=== PATIENT | male | born 1965 | race Two or more races ===

== ENCOUNTER 2017-06-23 19:38 | Inpatient (IN) | payer MEDICAID ==
[~2017-06-23] VITALS: Ht 172.7 cm; Wt 98.2 kg
[~2017-06-23 19:38] MED LIST: AMLO5CAP PO; ASPI81CH43 PO; METF-372 PO; OMEP20CA74 PO; RANI1TAB4 PO; SITA100T7 PO
[2017-06-23] MEDS ORDERED: ONDANSETRON HCL 4 MG/2 ML VIAL IV ONE (21:15)
[2017-06-23] MEDS ORDERED: MORPHINE SULFATE 10 MG/ML INJ 1ML SDV IV ONE (21:15)
[2017-06-23] MEDS ORDERED: ALBUTEROL SULF 2.5 MG/0.5ML(0.5%) NEB SOLN HHN ONE (21:15)
[2017-06-23] MEDS ORDERED: IPRATROPIUM BROM 0.5 MG/2.5ML INH SOL HHN ONE (21:15)
[2017-06-23 21:17] LABS: Basophils # (auto) 0.1 uL; Eosinophils # (auto) 0.3 uL; Eosinophils % (auto) 3.8 % (0.0-7.0); Hematocrit 38.5 % (41.0-53.0); Hemoglobin 12.3 g/dL (13.5-17.5); Lymphocytes # (auto) 1.7 uL; Lymphocytes % (auto) 21.3 % (10.0-50.0); Mean Corpuscular Hemoglobin 27.8 pg (28.0-32.0); Mean Corpuscular Hgb Conc. 31.8 g/dL (32.0-36.0); Mean Corpuscular Volume 87.6 fL (80.0-100.0); Mean Platelet Volume 7.4 fL (6.9-10.8); Monocytes # (auto) 0.9 uL; Monocytes % (auto) 10.9 % (0.0-12.0); Neutrophils # (auto) 5.1 uL; Platelet Count (auto) 158 10^3/uL (140-450); Red Cell Distribution Width 15.9 % (11.8-14.3); White Blood Cell 8.1 10^3/uL (4.4-10.8)
[2017-06-23 21:36] LABS: Urine Bilirubin Negative (Negative); Urine Blood 1+ /uL (Negative); Urine Color Yellow (Yellow); Urine Glucose Normal (Normal); Urine Ketone Negative (Negative); Urine Mucus FEW (None Seen); Urine Nitrite Negative (Negative); Urine RBC 2 /hpf (0 - 3)
[2017-06-23 21:36] LABS: Albumin 2.8 g/dL (3.4-5.0); BUN/Creatinine Ratio 20.2; Calcium 8.2 mg/dL (8.5-10.1)
[2017-06-23 21:40] LABS: Bilirubin, Total 0.4 mg/dL (0.2-1.0); Total Protein 6.9 g/dL (6.4-8.2)
[2017-06-23 21:45] LABS: INR 1.05 (0.9-1.15); Partial Thromboplastin Time 25.8 sec (22.64-33.71); Prothrombin Time 11.4 sec (9.37-12.3)
[2017-06-23 21:53] LABS: B-Type Natriuretic Peptide 811.23 pg/mL (0-100)
[2017-06-23 21:56] LABS: Temperature: 22.9 C (20.0-25.0)
[2017-06-23] MEDS ORDERED: MORPHINE SULFATE 10 MG/ML INJ 1ML SDV IV PRN (22:45)
[2017-06-23] MEDS ORDERED: TEMAZEPAM 15 MG CAP PO PRN (22:45)
[2017-06-23] MEDS ORDERED: FUROSEMIDE 20 MG/2 ML VIAL IV ONE (22:45)
[2017-06-23] MEDS ORDERED: NITROGLYCERIN 0.4 MG SL TAB SL PRN (22:45)
[2017-06-23] MEDS ORDERED: ACETAMINOPHEN 325 MG TAB PO PRN (22:45)
[2017-06-23] MEDS ORDERED: DEXTROSE (50%) 50ML SYRG IV PRN (22:45)
[2017-06-23] MEDS: InsuLIN REG 1unit/0.01ml Soln (100units/ml) SC SCH (23:26)
[2017-06-23] MEDS: ACCU-CHEK COMFORT CURVE STRIP VI SCH (23:26)
[2017-06-23] MEDS ORDERED: TRAM50TA2 PO (23:47)
[2017-06-23] MEDS ORDERED: GABA-339 PO (23:47)
[2017-06-23] MEDS ORDERED: ACLI1AER2 IN (23:47)
[2017-06-23] MEDS ORDERED: POTA10TA34 PO (23:47)
[2017-06-23] MEDS ORDERED: SILD50TA42 PO (23:47)
[2017-06-23] MEDS ORDERED: FLUO-125 PO (23:47)
[2017-06-23] MEDS ORDERED: NORT25CA PO (23:47)
[2017-06-23] MEDS ORDERED: CARV6.2551 PO (23:47)
[2017-06-24] MEDS ORDERED: METOPROLOL TARTRATE 1MG/1ML-5ML VIAL IV ONE ×2 (04:45→04:51)
[2017-06-24 04:54] LABS: Basophils # (auto) 0.1 uL; Basophils % (auto) 0.8 % (0.0-2.0); Eosinophils # (auto) 0.4 uL; Hematocrit 43.1 % (41.0-53.0); Hemoglobin 13.9 g/dL (13.5-17.5); Lymphocytes # (auto) 2.8 uL; Lymphocytes % (auto) 25.8 % (10.0-50.0); Mean Corpuscular Hemoglobin 28.6 pg (28.0-32.0); Mean Corpuscular Hgb Conc. 32.3 g/dL (32.0-36.0); Mean Corpuscular Volume 88.7 fL (80.0-100.0); Mean Platelet Volume 8.2 fL (6.9-10.8); Monocytes # (auto) 1.1 uL; Monocytes % (auto) 9.7 % (0.0-12.0); Neutrophils # (auto) 6.5 uL; Neutrophils % (auto) 59.7 % (37.0-80.0); Platelet Count (auto) 191 10^3/uL (140-450); Red Cell Distribution Width 16.5 % (11.8-14.3)
[2017-06-24 05:18] LABS: Albumin 3.3 g/dL (3.4-5.0); BUN/Creatinine Ratio 16.1; Bilirubin, Total 0.6 mg/dL (0.2-1.0); Calcium 8.6 mg/dL (8.5-10.1); Total Protein 8.7 g/dL (6.4-8.2)
[2017-06-24] MEDS: InsuLIN REG 1unit/0.01ml Soln (100units/ml) SC SCH ×4 (06:00→23:30)
[2017-06-24] MEDS: ACCU-CHEK COMFORT CURVE STRIP VI SCH ×4 (06:04→23:27)
[2017-06-24 06:15] LABS: Potassium 5.7 mmol/L (3.5-5.1)
[2017-06-24 06:45] VITALS: BP 135/91
[2017-06-24] MEDS ORDERED: DEXTROSE (50%) 50ML SYRG IV ONE (07:00)
[2017-06-24] MEDS ORDERED: InsuLIN REG 1unit/0.01ml Soln (100units/ml) IV ONE (07:00)
[2017-06-24] MEDS ORDERED: SODIUM BICARBONATE 8.4 % INJ 50ML VIAL IV ONE (07:00)
[2017-06-24] MEDS ORDERED: ENOXAPARIN SOD 100 MG/1 ML SYRINGE SC ONE (07:00)
[2017-06-24] MEDS ORDERED: CALCIUM GLUC 4.65meq/50ml D5AE 50 ML IV ONE (07:00)
[2017-06-24] MEDS: IPRATROPIUM BROM 0.5 MG/2.5ML INH SOL NEB PRN (07:05)
[2017-06-24] MEDS: ALBUTEROL SULF 2.5 MG/0.5ML(0.5%) NEB SOLN NEB PRN (07:05)
[2017-06-24 07:40] LABS: Allen Test Yes; Base Excess -2.4 mmol/L (-2.0-2.0); Blood MetHb 0.2 % (0.0-1.5); HCO3 29.4 mmol/L (22-26.0); HHb 10.9 % (0.0-5.0); MODE NASAL CANNULA; O2Hb 87.9 % (94.0-97.0); PCO2 90.2 mmHg (35.0-45.0); PCO2(T) 90.2 mmHg (35.0-45.0); PO2 70.9 mmHg (80.0-100.0); PO2(T) 70.9 mmHg (80.0-100.0); Room 1020-ERT; Sample Type Arterial; pH 7.131 (7.350-7.450)
[2017-06-24] MEDS: CARVEDILOL 3.125 MG TAB PO SCH ×2 (08:23→21:50)
[2017-06-24] MEDS: amLODIPine BESYLATE 5 MG TAB PO SCH (08:24)
[2017-06-24] MEDS: FUROSEMIDE 40 MG TAB PO SCH (08:24)
[2017-06-24] MEDS: FAMOTIDINE 20 MG TAB PO SCH ×4 (08:24→21:49)
[2017-06-24] MEDS: ENOXAPARIN SOD 40 MG/0.4 ML SYRINGE SC SCH (08:25)
[2017-06-24 08:46] LABS: Allen Test Yes; Base Excess -0.7 mmol/L (-2.0-2.0); Blood 02Sat 92.4 % (96-100); Blood COHb 0.8 % (0.5-1.5); Blood MetHb 0.2 % (0.0-1.5); HCO3 28.1 mmol/L (22-26.0); HHb 7.5 % (0.0-5.0); MODE MASK - BIPAP; O2Hb 91.5 % (94.0-97.0); PCO2 65.8 mmHg (35.0-45.0); PCO2(T) 65.8 mmHg (35.0-45.0); PIP 16; Room 1020-ERT; Sample Type Arterial; pH 7.248 (7.350-7.450)
[2017-06-24 09:02] VITALS: BP 135/91
[2017-06-24] MEDS ORDERED: IODIXANOL 320MG/ML 100ML BTL IV ONE (09:40)
[2017-06-24] MEDS ORDERED: RANITIDINE 75 MG PO SCH (10:00)
[2017-06-24 15:07] LABS: Body Fluid Polymorphonuclear 7 %
[2017-06-24] MEDS: HYDROcodone-ACET 5/325MG TAB PO PRN (15:47)
[2017-06-24 19:45] VITALS: BP 133/84
[2017-06-24 21:59] VITALS: BP 154/73
[2017-06-24 23:50] VITALS: BP 144/100
[2017-06-25 02:00] VITALS: BP 143/89
[2017-06-25 04:00] VITALS: BP 132/86
[2017-06-25] MEDS: IPRATROPIUM BROM 0.5 MG/2.5ML INH SOL NEB PRN (06:10)
[2017-06-25] MEDS: ALBUTEROL SULF 2.5 MG/0.5ML(0.5%) NEB SOLN NEB PRN (06:10)
[2017-06-25] MEDS: ACCU-CHEK COMFORT CURVE STRIP VI SCH ×4 (06:12→23:56)
[2017-06-25 06:13] LABS: Basophils # (auto) 0.1 uL; Basophils % (auto) 1.2 % (0.0-2.0); Eosinophils # (auto) 0.2 uL; Eosinophils % (auto) 2.3 % (0.0-7.0); Hematocrit 37.1 % (41.0-53.0); Hemoglobin 11.8 g/dL (13.5-17.5); Lymphocytes # (auto) 1.4 uL; Lymphocytes % (auto) 15.7 % (10.0-50.0); Mean Corpuscular Hemoglobin 28.2 pg (28.0-32.0); Mean Corpuscular Hgb Conc. 31.9 g/dL (32.0-36.0); Mean Corpuscular Volume 88.5 fL (80.0-100.0); Mean Platelet Volume 7.8 fL (6.9-10.8); Monocytes # (auto) 0.9 uL; Monocytes % (auto) 10.1 % (0.0-12.0); Neutrophils # (auto) 6.3 uL; Neutrophils % (auto) 70.7 % (37.0-80.0); Platelet Count (auto) 148 10^3/uL (140-450)
[2017-06-25] MEDS: InsuLIN REG 1unit/0.01ml Soln (100units/ml) SC SCH ×4 (06:13→23:55)
[2017-06-25 06:43] LABS: Albumin 2.6 g/dL (3.4-5.0); Bilirubin, Total 0.5 mg/dL (0.2-1.0); Calcium 8.2 mg/dL (8.5-10.1); Potassium 4.2 mmol/L (3.5-5.1); Total Protein 6.5 g/dL (6.4-8.2)
[2017-06-25 08:06] LABS: Thyroxine (T4) 10.4 ug/dL (4.5-12.0)
[2017-06-25] MEDS: FAMOTIDINE 20 MG TAB PO SCH ×4 (10:00→21:43)
[2017-06-25] MEDS: CARVEDILOL 3.125 MG TAB PO SCH ×2 (10:19→21:42)
[2017-06-25] MEDS: FUROSEMIDE 40 MG TAB PO SCH (10:21)
[2017-06-25] MEDS: amLODIPine BESYLATE 5 MG TAB PO SCH (10:21)
[2017-06-25] MEDS: ENOXAPARIN SOD 40 MG/0.4 ML SYRINGE SC SCH (10:22)
[2017-06-25] MEDS: HYDROcodone-ACET 5/325MG TAB PO PRN ×2 (12:41→21:17)
[2017-06-25 16:15] LABS: Allen Test Yes; Base Excess 1.8 mmol/L (-2.0-2.0); Blood 02Sat 87.1 % (96-100); Blood COHb 1.2 % (0.5-1.5); Blood MetHb 0.2 % (0.0-1.5); HCO3 28.2 mmol/L (22-26.0); HHb 12.7 % (0.0-5.0); MODE RA; O2Hb 85.9 % (94.0-97.0); PCO2 51.4 mmHg (35.0-45.0); PCO2(T) 51.4 mmHg (35.0-45.0); Room 1020-ERT; Sample Type Arterial; pH 7.357 (7.350-7.450)
[2017-06-25 22:25] VITALS: BP 149/90
[2017-06-26] MEDS ORDERED: VANCOMYCIN PER PHARMACY 0 MG IV SCH (05:15)
[2017-06-26] MEDS: PIPERACILLIN-TAZOB 3.375GM 100 ML IV SCH ×3 (05:23→18:10)
[2017-06-26] MEDS: InsuLIN REG 1unit/0.01ml Soln (100units/ml) SC SCH ×3 (06:00→18:06)
[2017-06-26] MEDS ORDERED: VANCOMYCIN 1GM/250ML 250 ML IV ONE (06:00)
[2017-06-26] MEDS: ACCU-CHEK COMFORT CURVE STRIP VI SCH ×3 (06:07→18:05)
[2017-06-26] MEDS: KETOROLAC TROMETH 30 MG/ML 1ML VIAL IV PRN ×2 (06:42→18:10)
[2017-06-26] MEDS: CARVEDILOL 3.125 MG TAB PO SCH ×2 (09:37→22:05)
[2017-06-26] MEDS: FAMOTIDINE 20 MG TAB PO SCH ×2 (09:37→22:05)
[2017-06-26] MEDS: ENOXAPARIN SOD 40 MG/0.4 ML SYRINGE SC SCH (09:37)
[2017-06-26] MEDS: amLODIPine BESYLATE 5 MG TAB PO SCH (09:37)
[2017-06-26] MEDS: FUROSEMIDE 40 MG TAB PO SCH (09:37)
[2017-06-26] MEDS: ONDANSETRON HCL 4 MG/2 ML VIAL IV PRN (13:29)
[2017-06-26] MEDS: VANCOMYCIN 1GM/250ML 250 ML IV SCH (18:10)
[2017-06-26] MEDS: HYDROcodone-ACET 5/325MG TAB PO PRN (20:16)
[2017-06-27] MEDS: ACCU-CHEK COMFORT CURVE STRIP VI SCH ×4 (00:14→18:06)
[2017-06-27] MEDS: PIPERACILLIN-TAZOB 3.375GM 100 ML IV SCH ×4 (00:15→18:06)
[2017-06-27] MEDS: VANCOMYCIN 1GM/250ML 250 ML IV SCH ×2 (06:00→18:06)
[2017-06-27] MEDS: InsuLIN REG 1unit/0.01ml Soln (100units/ml) SC SCH ×4 (06:00→18:27)
[2017-06-27 06:12] VITALS: BP 146/87
[2017-06-27] MEDS: FAMOTIDINE 20 MG TAB PO SCH ×2 (10:07→21:15)
[2017-06-27] MEDS: FUROSEMIDE 40 MG TAB PO SCH (10:07)
[2017-06-27] MEDS: CARVEDILOL 3.125 MG TAB PO SCH ×2 (10:07→21:15)
[2017-06-27] MEDS: ONDANSETRON HCL 4 MG/2 ML VIAL IV PRN ×2 (10:08→18:08)
[2017-06-27] MEDS: KETOROLAC TROMETH 30 MG/ML 1ML VIAL IV PRN ×2 (10:08→18:08)
[2017-06-27] MEDS: amLODIPine BESYLATE 5 MG TAB PO SCH (10:08)
[2017-06-27] MEDS: ENOXAPARIN SOD 40 MG/0.4 ML SYRINGE SC SCH (10:08)
[2017-06-27] MEDS: RAMIPRIL 10 MG CAP PO SCH (13:48)
[2017-06-27] MEDS: HYDROcodone-ACET 5/325MG TAB PO PRN (20:11)
[2017-06-27] MEDS ORDERED: ALPRAZolam 0.25 MG TAB PO PRN (22:30)
[2017-06-27 23:30] VITALS: BP 142/106
[2017-06-27 23:45] VITALS: BP 142/106
[2017-06-28] MEDS: PIPERACILLIN-TAZOB 3.375GM 100 ML IV SCH ×5 (00:38→23:55)
[2017-06-28] MEDS ORDERED: INFLUENZA QUAD 2017-2018 0.5 ML SYRG IM ONE (03:30)
[2017-06-28 05:00] VITALS: BP 139/102
[2017-06-28] MEDS: VANCOMYCIN 1GM/250ML 250 ML IV SCH ×2 (05:36→18:45)
[2017-06-28] MEDS: InsuLIN REG 1unit/0.01ml Soln (100units/ml) SC SCH ×4 (06:00→18:00)
[2017-06-28 06:16] LABS: Basophils # (auto) 0 uL; Basophils % (auto) 0.4 % (0.0-2.0); Eosinophils # (auto) 0.5 uL; Eosinophils % (auto) 6.3 % (0.0-7.0); Hematocrit 39.1 % (41.0-53.0); Hemoglobin 12.7 g/dL (13.5-17.5); Lymphocytes # (auto) 1.3 uL; Lymphocytes % (auto) 16.3 % (10.0-50.0); Mean Corpuscular Hemoglobin 28.5 pg (28.0-32.0); Mean Corpuscular Hgb Conc. 32.4 g/dL (32.0-36.0); Mean Corpuscular Volume 87.9 fL (80.0-100.0); Mean Platelet Volume 7.5 fL (6.9-10.8); Monocytes # (auto) 0.9 uL; Monocytes % (auto) 10.8 % (0.0-12.0); Neutrophils # (auto) 5.4 uL; Neutrophils % (auto) 66.2 % (37.0-80.0); Platelet Count (auto) 158 10^3/uL (140-450); Red Cell Distribution Width 15.6 % (11.8-14.3); White Blood Cell 8.2 10^3/uL (4.4-10.8)
[2017-06-28] MEDS: ACCU-CHEK COMFORT CURVE STRIP VI SCH ×4 (06:27→17:10)
[2017-06-28 06:38] LABS: Albumin 2.8 g/dL (3.4-5.0); Bilirubin, Total 0.8 mg/dL (0.2-1.0); Calcium 8.4 mg/dL (8.5-10.1); Potassium 4.1 mmol/L (3.5-5.1); Total Protein 7.1 g/dL (6.4-8.2)
[2017-06-28 08:41] VITALS: BP 118/79
[2017-06-28] MEDS ORDERED: ADCIRCA 20 MG PO SCH ×2 (10:00)
[2017-06-28] MEDS: ENOXAPARIN SOD 40 MG/0.4 ML SYRINGE SC SCH (11:09)
[2017-06-28] MEDS: CARVEDILOL 3.125 MG TAB PO SCH ×2 (11:10→22:36)
[2017-06-28] MEDS: FAMOTIDINE 20 MG TAB PO SCH ×2 (11:10→22:35)
[2017-06-28] MEDS: RAMIPRIL 10 MG CAP PO SCH (11:10)
[2017-06-28] MEDS: FUROSEMIDE 40 MG TAB PO SCH (11:11)
[2017-06-28] MEDS: amLODIPine BESYLATE 5 MG TAB PO SCH (11:11)
[2017-06-28 12:00] VITALS: BP 147/96
[2017-06-28 17:00] VITALS: BP 157/97
[2017-06-28] MEDS ORDERED: cloNIDine HCL 0.1 MG TAB PO PRN (17:30)
[2017-06-28 22:00] VITALS: BP 153/97
[2017-06-29 04:49] VITALS: BP 141/98
[2017-06-29] MEDS: VANCOMYCIN 1GM/250ML 250 ML IV SCH (05:43)
[2017-06-29] MEDS: InsuLIN REG 1unit/0.01ml Soln (100units/ml) SC SCH ×2 (06:00)
[2017-06-29] MEDS: ACCU-CHEK COMFORT CURVE STRIP VI SCH ×2 (06:00)
[2017-06-29] MEDS: PIPERACILLIN-TAZOB 3.375GM 100 ML IV SCH (06:30)
[2017-06-29 09:00] VITALS: BP 147/91
[2017-06-29] MEDS: ENOXAPARIN SOD 40 MG/0.4 ML SYRINGE SC SCH (10:04)
[2017-06-29] MEDS: amLODIPine BESYLATE 5 MG TAB PO SCH (10:04)
[2017-06-29] MEDS: FAMOTIDINE 20 MG TAB PO SCH (10:05)
[2017-06-29] MEDS: FUROSEMIDE 40 MG TAB PO SCH (10:05)
[2017-06-29] MEDS: RAMIPRIL 10 MG CAP PO SCH (10:06)
[2017-06-29] MEDS: CARVEDILOL 3.125 MG TAB PO SCH (10:06)
[2017-06-29] MEDS: HYDROcodone-ACET 5/325MG TAB PO PRN (10:15)
[2017-06-29 12:25] VITALS: BP 139/70
[2017-06-29 14:15] VITALS: BP 141/98
== END 2017-06-29 15:45 | disposition home or self-care (01) | DRG 133 ==
LOC: ER 19:38 → TELE 19:39 → TELE-EAST 06-27 23:20 → EAST 06-27 23:21 → TELE-EAST 06-27 23:37
PROVIDERS: ADMIT Nurse Practitioner; ATTEND Internal Medicine
PROC: 5A09357 Assistance with Respiratory Ventilation, Less than 24 Consecutive Hours, Continuous Positive Airway Pressure (ICD-10-PCS; principal; 2017-06-24)
PROC: 0W9930Z Drainage of Right Pleural Cavity with Drainage Device, Percutaneous Approach (ICD-10-PCS; 2017-06-24)
DX: J96.00 Acute respiratory failure, unspecified whether with hypoxia or hypercapnia (principal); I50.43 Acute on chronic combined systolic (congestive) and diastolic (congestive) heart failure; E11.8 Type 2 diabetes mellitus with unspecified complications; I27.20 Pulmonary hypertension, unspecified; I25.10 Atherosclerotic heart disease of native coronary artery without angina pectoris; K21.9 Gastro-esophageal reflux disease without esophagitis; I11.0 Hypertensive heart disease with heart failure; E78.5 Hyperlipidemia, unspecified; I25.2 Old myocardial infarction; Z86.73 Personal history of transient ischemic attack (TIA), and cerebral infarction without residual deficits; Z80.1 Family history of malignant neoplasm of trachea, bronchus and lung; Z83.3 Family history of diabetes mellitus; Z82.49 Family history of ischemic heart disease and other diseases of the circulatory system; Z95.1 Presence of aortocoronary bypass graft
CPT/HCPCS: 36415; 36600; 71010; 71020; 71275; 76604; 76942; 80053; 80202; 81001; 82805; 82962; 83605; 83735; 83880; 83986; 84132; 84443; 84484; 85025; 85379; 85610; 85730; 87040; 87070; 87077; 87186; 87205; 89051; 93005; 93306; 93970; 94640; 94660; 94761; 96374; 96375; J1815; J1885; J2405; J2543; Q9967

== ENCOUNTER 2017-07-07 09:32 | Inpatient (IN) | payer MEDICAID ==
[~2017-07-07] VITALS: Ht 170.2 cm; Wt 90.7 kg
[~2017-07-07 09:32] MED LIST changes: +ACLI1AER2 IN; +CARV6.2551 PO; +FLUO-125 PO; +GABA-339 PO; +NORT25CA PO; +POTA10TA34 PO; +SILD50TA42 PO; +TRAM50TA2 PO
[2017-07-07 10:12] LABS: Basophils # (auto) 0.1 uL; Basophils % (auto) 1.4 % (0.0-2.0); Eosinophils # (auto) 0.4 uL; Eosinophils % (auto) 5.4 % (0.0-7.0); Hematocrit 39.7 % (41.0-53.0); Hemoglobin 12.9 g/dL (13.5-17.5); Lymphocytes # (auto) 1.4 uL; Mean Corpuscular Hemoglobin 28.4 pg (28.0-32.0); Mean Corpuscular Hgb Conc. 32.4 g/dL (32.0-36.0); Mean Corpuscular Volume 87.6 fL (80.0-100.0); Monocytes # (auto) 0.7 uL; Monocytes % (auto) 8.4 % (0.0-12.0); Neutrophils # (auto) 5.6 uL; Neutrophils % (auto) 67.8 % (37.0-80.0); Nucleated Red Blood Cells % 0.1 %; Platelet Count (auto) 179 10^3/uL (140-450); Red Blood Cells 4.53 10^6/uL (4.5-5.90); Red Cell Distribution Width 16.3 % (11.8-14.3); White Blood Cell 8.2 10^3/uL (4.4-10.8)
[2017-07-07 10:32] LABS: Albumin 2.9 g/dL (3.4-5.0); BUN/Creatinine Ratio 35.1; Calcium 8.8 mg/dL (8.5-10.1); Magnesium 1.9 mg/dL (1.6-2.6); Potassium 4.1 mmol/L (3.5-5.1)
[2017-07-07 10:37] LABS: Bilirubin, Total 0.4 mg/dL (0.2-1.0); Total Protein 7.5 g/dL (6.4-8.2)
[2017-07-07] MEDS ORDERED: FURO40TA PO (10:59)
[2017-07-07] MEDS ORDERED: NITROGLYCERIN 0.4 MG SL TAB SL PRN (13:30)
[2017-07-07] MEDS ORDERED: MORPHINE SULFATE 10 MG/ML INJ 1ML SDV IV PRN ×2 (13:30)
[2017-07-07] MEDS ORDERED: TEMAZEPAM 15 MG CAP PO PRN (13:30)
[2017-07-07] MEDS ORDERED: traMADol HCL 50 MG TAB PO PRN (13:30)
[2017-07-07] MEDS ORDERED: ACETAMINOPHEN 325 MG TAB PO PRN (13:30)
[2017-07-07] MEDS ORDERED: FUROSEMIDE 40 MG/4 ML VIAL IV ONE (13:30)
[2017-07-07] MEDS ORDERED: DOCUSATE SOD 100 MG CAP PO PRN (13:30)
[2017-07-07] MEDS ORDERED: ONDANSETRON HCL 4 MG/2 ML VIAL IV PRN (13:30)
[2017-07-07] MEDS ORDERED: CARVEDILOL 3.125 MG TAB PO ONE (13:30)
[2017-07-07] MEDS ORDERED: HYDROcodone-ACET 5/325MG TAB PO PRN (13:30)
[2017-07-07] MEDS ORDERED: DEXTROSE (50%) 50ML SYRG IV PRN (13:45)
[2017-07-07 13:50] LABS: INR 0.99 (0.9-1.15); Partial Thromboplastin Time 26.6 sec (22.64-33.71); Prothrombin Time 10.8 sec (9.37-12.3)
[2017-07-07] MEDS: SILDENAFIL CITRATE 20 MG TAB PO SCH ×2 (14:00→21:07)
[2017-07-07] MEDS: SODIUM CHLOR 0.9% PF (SALINE LOCK) 10ML VIAL IV SCH ×2 (14:00→22:23)
[2017-07-07] MEDS: GABAPENTIN 300 MG CAP PO SCH ×2 (14:00→22:23)
[2017-07-07] MEDS: InsuLIN REG 1unit/0.01ml Soln (100units/ml) SC SCH ×2 (17:50→22:00)
[2017-07-07] MEDS: ACCU-CHEK COMFORT CURVE STRIP VI SCH ×2 (17:50→22:23)
[2017-07-07] MEDS: Boost Glucose Control 8 Ounces PO SCH (17:59)
[2017-07-07] MEDS: FUROSEMIDE 40 MG/4 ML VIAL IV SCH (18:02)
[2017-07-07] MEDS ORDERED: cefTRIAXone 1GM/50ML D5W 50 ML IV ONE (19:15)
[2017-07-07] MEDS ORDERED: IOHEXOL 350 MG/ML 100ML IJ ONE (19:42)
[2017-07-07] MEDS: IPRATROPIUM BROM 0.5 MG/2.5ML INH SOL NEB SCH ×2 (20:19→23:56)
[2017-07-07] MEDS: ALBUTEROL SULF 2.5 MG/0.5ML(0.5%) NEB SOLN NEB SCH ×2 (20:19→23:56)
[2017-07-07 21:20] VITALS: BP 136/71
[2017-07-07 22:00] VITALS: BP 131/81
[2017-07-07] MEDS ORDERED: NORTRIPTYLINE HCL 10 MG CAP PO SCH (22:00)
[2017-07-07] MEDS ORDERED: PATIENTS OWN MEDICATION IN SCH (22:00)
[2017-07-07] MEDS ORDERED: FLUoxetine HCL 20 MG CAP PO SCH (22:00)
[2017-07-07] MEDS: CARVEDILOL 3.125 MG TAB PO SCH (22:22)
[2017-07-07] MEDS: POTASSIUM CHLORIDE 8 MEQ TAB PO SCH (22:22)
[2017-07-07 22:30] VITALS: BP 137/81
[2017-07-08 05:00] VITALS: BP 112/69
[2017-07-08 05:53] LABS: Basophils # (auto) 0.1 uL; Basophils % (auto) 1.4 % (0.0-2.0); Eosinophils # (auto) 0.5 uL; Eosinophils % (auto) 5.6 % (0.0-7.0); Hemoglobin 11.6 g/dL (13.5-17.5); Lymphocytes # (auto) 1.7 uL; Lymphocytes % (auto) 19.6 % (10.0-50.0); Mean Corpuscular Hgb Conc. 32.4 g/dL (32.0-36.0); Mean Corpuscular Volume 86.6 fL (80.0-100.0); Monocytes % (auto) 11.9 % (0.0-12.0); Neutrophils # (auto) 5.2 uL; Neutrophils % (auto) 61.5 % (37.0-80.0); Nucleated Red Blood Cells % 0.1 %; Platelet Count (auto) 172 10^3/uL (140-450); Red Blood Cells 4.15 10^6/uL (4.5-5.90); White Blood Cell 8.5 10^3/uL (4.4-10.8)
[2017-07-08] MEDS: SODIUM CHLOR 0.9% PF (SALINE LOCK) 10ML VIAL IV SCH ×2 (05:53→14:18)
[2017-07-08] MEDS: FUROSEMIDE 40 MG/4 ML VIAL IV SCH ×2 (05:53→17:52)
[2017-07-08] MEDS: GABAPENTIN 300 MG CAP PO SCH ×2 (05:53→14:15)
[2017-07-08 06:04] LABS: Potassium 4.1 mmol/L (3.5-5.1)
[2017-07-08 06:09] LABS: Albumin 2.8 g/dL (3.4-5.0); BUN/Creatinine Ratio 33.7; Bilirubin, Total 0.4 mg/dL (0.2-1.0); Calcium 8.8 mg/dL (8.5-10.1)
[2017-07-08 06:13] LABS: Total Protein 6.9 g/dL (6.4-8.2)
[2017-07-08] MEDS: ACCU-CHEK COMFORT CURVE STRIP VI SCH ×3 (06:30→17:28)
[2017-07-08] MEDS: InsuLIN REG 1unit/0.01ml Soln (100units/ml) SC SCH ×3 (06:30→17:00)
[2017-07-08 08:00] VITALS: BP 112/69
[2017-07-08] MEDS: Boost Glucose Control 8 Ounces PO SCH ×2 (08:00→12:00)
[2017-07-08] MEDS: ALBUTEROL SULF 2.5 MG/0.5ML(0.5%) NEB SOLN NEB SCH ×2 (08:14→16:07)
[2017-07-08] MEDS: IPRATROPIUM BROM 0.5 MG/2.5ML INH SOL NEB SCH ×2 (08:14→16:07)
[2017-07-08 08:48] LABS: Urine Bacteria NONE SEEN /hpf (None Seen); Urine Blood 1+ /uL (Negative); Urine Mucus FEW (None Seen); Urine Specific Gravity 1.022 (1.001-1.035); Urine WBC 1 /hpf (0 - 3)
[2017-07-08] MEDS ORDERED: cefTRIAXone 1GM/50ML D5W 50 ML IV SCH (09:00)
[2017-07-08 09:17] VITALS: BP 124/83
[2017-07-08] MEDS: SILDENAFIL CITRATE 20 MG TAB PO SCH ×2 (09:44→14:15)
[2017-07-08] MEDS: CARVEDILOL 3.125 MG TAB PO SCH (09:47)
[2017-07-08] MEDS: POTASSIUM CHLORIDE 8 MEQ TAB PO SCH (09:47)
[2017-07-08] MEDS ORDERED: MULTIPLE VITAMIN TAB PO SCH (10:00)
[2017-07-08] MEDS: HYDROmorphone HCL 2 MG/ML VL IV PRN ×2 (10:10→14:15)
[2017-07-08 12:27] VITALS: BP 166/83
[2017-07-08 16:54] VITALS: BP 132/77
[2017-07-08 18:02] VITALS: BP 132/77
[2017-07-08] MEDS ORDERED: DOXYCYCLINE 100 MG TAB/CAP PO SCH (22:00)
== END 2017-07-08 18:45 | disposition home or self-care (01) | DRG 194 ==
LOC: ER 09:32 → TELE 09:33 → TELE-WESTW 21:30
PROVIDERS: ADMIT Internal Medicine; ATTEND Internal Medicine
PROC: 0W993ZZ Drainage of Right Pleural Cavity, Percutaneous Approach (ICD-10-PCS; principal; 2017-07-07)
DX: I11.0 Hypertensive heart disease with heart failure (principal); E11.42 Type 2 diabetes mellitus with diabetic polyneuropathy; E44.0 Moderate protein-calorie malnutrition; Z95.1 Presence of aortocoronary bypass graft; D63.8 Anemia in other chronic diseases classified elsewhere; E11.9 Type 2 diabetes mellitus without complications; J44.9 Chronic obstructive pulmonary disease, unspecified; I50.43 Acute on chronic combined systolic (congestive) and diastolic (congestive) heart failure; E78.5 Hyperlipidemia, unspecified; I70.0 Atherosclerosis of aorta; K21.9 Gastro-esophageal reflux disease without esophagitis; I25.10 Atherosclerotic heart disease of native coronary artery without angina pectoris; I25.2 Old myocardial infarction; Z82.49 Family history of ischemic heart disease and other diseases of the circulatory system; Z86.73 Personal history of transient ischemic attack (TIA), and cerebral infarction without residual deficits; Z87.891 Personal history of nicotine dependence; Z68.31 Body mass index [BMI] 31.0-31.9, adult; Z79.899 Other long term (current) drug therapy; Z79.82 Long term (current) use of aspirin
CPT/HCPCS: 36415; 71010; 71020; 71275; 76604; 76942; 80053; 81001; 82962; 83036; 83735; 83880; 84443; 84484; 85025; 85379; 85610; 85730; 87040; 87081; 93005; 93970; 94640; 94761; 96374; 96375; 96376; J0696

== ENCOUNTER 2017-10-11 15:34 | Emergency (ER) | payer MEDICAID ==
[~2017-10-11] VITALS: Ht 172.7 cm; Wt 88.5 kg
[~2017-10-11 15:34] MED LIST changes: +FURO40TA PO
[2017-10-11] MEDS ORDERED: BACITRACIN TOP OINT 1 UD PKG TOP ONE (17:15)
[2017-10-11] MEDS ORDERED: LIDOCAINE 1% HCL (LOCAL ANESTH.) INJ 20ML MDV ID ONE (17:15)
[2017-10-11] MEDS ORDERED: HYDROcodone-ACET 10/325MG TAB PO ONE (17:15)
[2017-10-11] MEDS ORDERED: MORPHINE SULFATE 4 MG/ML SYR/VIAL IV ONE ×3 (17:30→18:45)
[2017-10-11] MEDS ORDERED: cefTRIAXone 1GM/10ml IVPUSH 10 ML IV ONE (18:15)
[2017-10-11] MEDS ORDERED: SODIUM CHLORIDE 0.9% 1,000 ML IV ONE (18:15)
[2017-10-11] MEDS ORDERED: MEPERIDINE HCL (50 MG/ML) 1 ML VIAL IV ONE (18:45)
[2017-10-11] MEDS ORDERED: HYDROmorphone HCL 2 MG/ML VL IV ONE (18:45)
[2017-10-11 19:14] LABS: Basophils # (auto) 0.1 uL; Basophils % (auto) 0.8 % (0.0-2.0); Eosinophils # (auto) 0.1 uL; Eosinophils % (auto) 0.8 % (0.0-7.0); Hemoglobin 13.1 g/dL (13.5-17.5); Lymphocytes # (auto) 2.5 uL; Lymphocytes % (auto) 20.6 % (10.0-50.0); Mean Corpuscular Hemoglobin 30.6 pg (28.0-32.0); Mean Corpuscular Hgb Conc. 33.7 g/dL (32.0-36.0); Mean Corpuscular Volume 90.9 fL (80.0-100.0); Monocytes # (auto) 0.8 uL; Monocytes % (auto) 6.2 % (0.0-12.0); Neutrophils # (auto) 8.8 uL; Neutrophils % (auto) 71.6 % (37.0-80.0); Nucleated Red Blood Cells % 0.1 %; Platelet Count (auto) 262 10^3/uL (140-450); Red Blood Cells 4.29 10^6/uL (4.5-5.90); White Blood Cell 12.3 10^3/uL (4.4-10.8)
[2017-10-11 19:28] LABS: INR 0.99 (0.9-1.15); Partial Thromboplastin Time 25.9 sec (22.64-33.71); Prothrombin Time 10.8 sec (9.37-12.3)
[2017-10-11 19:38] LABS: Albumin 3.1 g/dL (3.4-5.0); Calcium 8.2 mg/dL (8.5-10.1)
[2017-10-11 19:56] LABS: Bilirubin, Total 0.4 mg/dL (0.2-1.0); Total Protein 6.9 g/dL (6.4-8.2)
[2017-10-11 20:43] VITALS: BP 119/84
== END 2017-10-11 21:00 | disposition short-term general hospital (02) ==
LOC: ER 15:34
DX: S61.412A Laceration without foreign body of left hand, initial encounter (principal); J44.9 Chronic obstructive pulmonary disease, unspecified; I25.10 Atherosclerotic heart disease of native coronary artery without angina pectoris; K21.9 Gastro-esophageal reflux disease without esophagitis; I13.0 Hypertensive heart and chronic kidney disease with heart failure and stage 1 through stage 4 chronic kidney disease, or unspecified chronic kidney disease; E11.22 Type 2 diabetes mellitus with diabetic chronic kidney disease; N18.9 Chronic kidney disease, unspecified; I50.9 Heart failure, unspecified; F17.210 Nicotine dependence, cigarettes, uncomplicated; Z95.1 Presence of aortocoronary bypass graft; Z79.82 Long term (current) use of aspirin; Z86.73 Personal history of transient ischemic attack (TIA), and cerebral infarction without residual deficits; Z79.891 Long term (current) use of opiate analgesic; Z79.899 Other long term (current) drug therapy; V86.95XA Unspecified occupant of 3- or 4- wheeled all-terrain vehicle (ATV) injured in nontraffic accident, initial encounter; Y93.89 Activity, other specified; Y99.8 Other external cause status; Y92.89 Other specified places as the place of occurrence of the external cause
CPT/HCPCS: 12005; 36415; 71045; 73090; 73130; 80053; 83880; 84484; 85025; 85610; 85730; 86850; 86900; 86901; 96361; 96374; 96375; 99285; J2175; J2270; J7030; 12045

== ENCOUNTER 2019-10-17 00:36 | Inpatient (IN) | payer MEDICAID ==
[~2019-10-17] VITALS: Ht 167.6 cm; Wt 79.0 kg
[2019-10-17] VITALS (56 sets, daily range): BP systolic 84–157; BP diastolic 49–108
[~2019-10-17 00:36] MED LIST changes: +ACET5SOL5 PO; -ACLI1AER2 IN; +ALBUAER3 IN; +AMIO200T4 PO; -AMLO5CAP PO; +APIX5TAB PO; +CAR125T PO; +CARV12.544 PO; -CARV6.2551 PO; +DOXY-332 PO; +FURO1TAB31 PO; -FURO40TA PO; -GABA-339 PO; +IPRIH IN; -METF-372 PO; +NORT10CA PO; -NORT25CA PO; -OMEP20CA74 PO; +OMEP20TA PO; -POTA10TA34 PO; -RANI1TAB4 PO; +SILD25TA15 PO; -SILD50TA42 PO; -SITA100T7 PO; +TAMIFLU PO; -TRAM50TA2 PO
[2019-10-17] MEDS ORDERED: ACCU-CHEK COMFORT CURVE STRIP VI ONE (01:15)
[2019-10-17] MEDS: MIDAZOLAM DRIP 50 mg/50mL 50 ML IV SCH (01:25)
[2019-10-17 01:37] LABS: Basophils # (auto) 0.1 uL; Basophils % (auto) 0.8 % (0.0-2.0); Eosinophils # (auto) 0.1 uL; Eosinophils % (auto) 1.3 % (0.0-7.0); Hematocrit 44.9 % (41.0-53.0); Hemoglobin 14.3 g/dL (13.5-17.5); Lymphocytes # (auto) 2.9 uL; Lymphocytes % (auto) 26.8 % (10.0-50.0); Mean Corpuscular Hgb Conc. 31.9 g/dL (32.0-36.0); Mean Corpuscular Volume 90.9 fL (80.0-100.0); Monocytes % (auto) 9.3 % (0.0-12.0); Neutrophils # (auto) 6.7 uL; Neutrophils % (auto) 61.8 % (37.0-80.0); Nucleated Red Blood Cells % 0.1 %; Platelet Count (auto) 221 10^3/uL (140-450); Red Blood Cells 4.93 10^6/uL (4.5-5.90); Red Cell Distribution Width 14.4 % (11.8-14.3); White Blood Cell 10.8 10^3/uL (4.4-10.8)
[2019-10-17 01:59] LABS: Albumin 2.5 g/dL (3.4-5.0); BUN/Creatinine Ratio 21.9; Calcium 7.7 mg/dL (8.5-10.1); Potassium 4.7 mmol/L (3.5-5.1); Salicylate < 1.7 mg/dL (2.8-20.0)
[2019-10-17 02:01] LABS: Acetaminophen 38.3 ug/mL (10-30)
[2019-10-17 02:02] LABS: Bilirubin, Total 0.7 mg/dL (0.2-1.0); Total Protein 6.6 g/dL (6.4-8.2)
[2019-10-17] MEDS ORDERED: MIDAZOLAM HCL 5 MG/ML-1ML VIAL ONE ×2 (02:08→02:16)
[2019-10-17] MEDS ORDERED: MIDAZOLAM DRIP 50 mg/50mL 0 ML IV ONE ×2 (02:15→07:15)
[2019-10-17] MEDS ORDERED: MIDAZOLAM HCL 5 MG/ML-1ML VIAL IV ONE (02:15)
[2019-10-17] MEDS: NOREPINEPHRINE 8 MG/250ML KIT 250 ML IV SCH (02:42)
[2019-10-17] MEDS ORDERED: NOREPINEPHRINE 8 MG/250ML KIT 250 ML IV ONE (02:45)
[2019-10-17] MEDS ORDERED: PIPERACILLIN-TAZOB 3.375GM 100 ML IV SCH (03:00)
[2019-10-17] MEDS ORDERED: MORPHINE SULFATE 4 MG/ML SYR/VIAL IV PRN (03:00)
[2019-10-17] MEDS ORDERED: DEXTROSE (50%) 50ML SYRG IV PRN (03:00)
[2019-10-17] MEDS ORDERED: MORPHINE SULF INJ 2 MG/ML SYRINGE 1ML IV PRN (03:00)
[2019-10-17] MEDS ORDERED: NITROGLYCERIN 0.4 MG SL TAB SL PRN (03:00)
[2019-10-17] MEDS: InsuLIN REG 1unit/0.01ml Soln (100units/ml) SC SCH ×5 (04:00→20:56)
[2019-10-17] MEDS: PROPOFOL 100 ML IV SCH ×2 (04:42→22:01)
[2019-10-17] MEDS ORDERED: PROPOFOL 100 ML IV ONE (04:45)
[2019-10-17] MEDS: PIPERACILLIN-TAZOB 2.25GM 50 ML IV SCH ×4 (04:59→23:59)
[2019-10-17] MEDS: ACCU-CHEK COMFORT CURVE STRIP VI SCH ×5 (05:00→20:56)
[2019-10-17] MEDS ORDERED: methylPREDNISolone SOD SUCC 125 MG/2 ML VL IV SCH (06:00)
[2019-10-17] MEDS ORDERED: ETOMIDATE (2MG/ML) 20ML VIAL IV ONE (07:15)
[2019-10-17] MEDS ORDERED: SUCCINYLCHOLINE CHLORIDE 20 MG/ML 10ML VIAL IV ONE (07:16)
[2019-10-17] MEDS ORDERED: DOPamine 1600MCG/ML D5W 250 ML IV SCH ×2 (07:17→10:04)
[2019-10-17] MEDS ORDERED: DOPamine 1600MCG/ML D5W 250 ML IV ONE (07:20)
[2019-10-17 08:26] LABS: Magnesium 2.1 mg/dL (1.6-2.6)
[2019-10-17 10:06] LABS: Eosinophils # (auto) 0 uL; Eosinophils % (auto) 0.1 % (0.0-7.0); Hemoglobin 15.6 g/dL (13.5-17.5); Lymphocytes # (auto) 1.1 uL; Mean Corpuscular Volume 96.1 fL (80.0-100.0); Monocytes # (auto) 1.9 uL; Nucleated Red Blood Cells % 0.1 %
[2019-10-17 10:08] LABS: Basophils # (auto) 0.1 uL; Basophils % (auto) 0.4 % (0.0-2.0); Hematocrit 50.9 % (41.0-53.0); Lymphocytes % (auto) 6.9 % (10.0-50.0); Mean Corpuscular Hemoglobin 29.5 pg (28.0-32.0); Mean Corpuscular Hgb Conc. 30.7 g/dL (32.0-36.0); Monocytes % (auto) 12.2 % (0.0-12.0); Neutrophils # (auto) 12.5 uL; Neutrophils % (auto) 80.4 % (37.0-80.0); Platelet Count (auto) 263 10^3/uL (140-450); Red Blood Cells 5.29 10^6/uL (4.5-5.90); White Blood Cell 15.6 10^3/uL (4.4-10.8)
[2019-10-17] MEDS: DOBUTamine 1000MCG/ML 250 ML IV SCH ×2 (10:19→18:57)
[2019-10-17 10:23] LABS: Albumin 2.9 g/dL (3.4-5.0); Calcium 8.2 mg/dL (8.5-10.1); Potassium 5.3 mmol/L (3.5-5.1)
[2019-10-17 10:27] LABS: Bilirubin, Total 1.2 mg/dL (0.2-1.0); Total Protein 7.7 g/dL (6.4-8.2)
[2019-10-17 10:32] LABS: INR 1.92 (0.9-1.15); Partial Thromboplastin Time 35.3 sec (23.64-32.05)
[2019-10-17] MEDS ORDERED: HEPARIN SODIUM (PORCINE) 5000 UNITS/ML 1ML VIAL IV ONE ×3 (11:15→12:45)
[2019-10-17] MEDS ORDERED: PANTOPRAZOLE 40 MG/10 ML VIAL INJ IV ONE (12:15)
[2019-10-17] MEDS ORDERED: HEPARIN DRIP/D5W 100UNITS/ML 250 ML IV SCH (12:39)
[2019-10-17] MEDS ORDERED: ACETYLCYSTEINE 200MG/ML IV SOL 15,000 MG in D5W 5% 250 ML IV ONE ×2 (13:30→16:00)
[2019-10-17] MEDS ORDERED: EPINEPHrine HCL 1 MG/10 ML SYRG IV ONE (13:48)
[2019-10-17] MEDS: HEPARIN DRIP/D5W 100UNITS/ML 250 ML IV SCH (14:07)
[2019-10-17] MEDS ORDERED: ACETYLCYSTEINE 200MG/ML IV SOL 5,000 MG in D5W 5% 500 ML IV ONE ×2 (14:30→18:00)
[2019-10-17] MEDS: BUMETANIDE 2.5mg/10ml (0.25 mg/ml) INJ IV SCH (14:47)
[2019-10-17] MEDS: SODIUM BICARBONATE 50ML VIAL 50 ML in SOD CHL 0.45% 1,000 ML IV SCH (15:00)
[2019-10-17 16:19] LABS: Lactic Acid w/Reflex 3.2 mmol/L (0.4-2.0)
[2019-10-17 20:25] LABS: INR 3.31 (0.9-1.15)
[2019-10-17 20:28] LABS: Partial Thromboplastin Time > 139.0 sec (23.64-32.05)
[2019-10-17] MEDS ORDERED: ACETYLCYSTEINE ORAL for CIN 20%(200MG/ML) 4ML PO SCH (22:00)
[2019-10-17] MEDS: LINEZOLID 600MG/300ML 300 ML IV SCH (22:01)
[2019-10-17] MEDS: ACETYLCYSTEINE 200MG/ML IV SOL 10,000 MG in D5W 5% 1,000 ML IV SCH (22:43)
[2019-10-18] VITALS (97 sets, daily range): BP systolic 108–163; BP diastolic 69–101
[2019-10-18] MEDS: ACCU-CHEK COMFORT CURVE STRIP VI SCH ×6 (00:05→20:35)
[2019-10-18] MEDS: InsuLIN REG 1unit/0.01ml Soln (100units/ml) SC SCH ×6 (00:05→20:35)
[2019-10-18] MEDS: SODIUM BICARBONATE 50ML VIAL 50 ML in SOD CHL 0.45% 1,000 ML IV SCH (00:23)
[2019-10-18] MEDS: MIDAZOLAM DRIP 50 mg/50mL 50 ML IV SCH (02:12)
[2019-10-18] MEDS: NOREPINEPHRINE 8 MG/250ML KIT 250 ML IV SCH (02:39)
[2019-10-18] MEDS: HEPARIN DRIP/D5W 100UNITS/ML 250 ML IV SCH ×2 (02:52→13:35)
[2019-10-18] MEDS: DOBUTamine 1000MCG/ML 250 ML IV SCH ×3 (03:41→20:36)
[2019-10-18 04:55] LABS: Basophils # (auto) 0 uL; Basophils % (auto) 0.6 % (0.0-2.0); Eosinophils # (auto) 0 uL; Eosinophils % (auto) 0.1 % (0.0-7.0); Hematocrit 39.4 % (41.0-53.0); Hemoglobin 13.2 g/dL (13.5-17.5); Lymphocytes # (auto) 0.8 uL; Lymphocytes % (auto) 9.4 % (10.0-50.0); Mean Corpuscular Hemoglobin 29.6 pg (28.0-32.0); Mean Corpuscular Hgb Conc. 33.4 g/dL (32.0-36.0); Mean Corpuscular Volume 88.7 fL (80.0-100.0); Monocytes # (auto) 0.5 uL; Monocytes % (auto) 6.2 % (0.0-12.0); Neutrophils % (auto) 83.7 % (37.0-80.0); Nucleated Red Blood Cells % 0.1 %; Platelet Count (auto) 172 10^3/uL (140-450); Red Blood Cells 4.45 10^6/uL (4.5-5.90); Red Cell Distribution Width 14.2 % (11.8-14.3); White Blood Cell 8.3 10^3/uL (4.4-10.8)
[2019-10-18 05:10] LABS: Calcium 7.3 mg/dL (8.5-10.1); Potassium 3.7 mmol/L (3.5-5.1)
[2019-10-18 05:11] LABS: Lactic Acid w/Reflex 3.5 mmol/L (0.4-2.0)
[2019-10-18 05:15] LABS: BUN/Creatinine Ratio 20.3; Bilirubin, Total 0.6 mg/dL (0.2-1.0); Total Protein 5.6 g/dL (6.4-8.2)
[2019-10-18 05:28] LABS: INR 3.19 (0.9-1.15)
[2019-10-18 05:35] LABS: Partial Thromboplastin Time > 139.0 sec (23.64-32.05)
[2019-10-18 05:44] LABS: Urine Amorphous Crystal MANY /hpf (None Seen); Urine Bacteria MOD /hpf (None Seen); Urine Blood 2+ /uL (Negative); Urine Hyaline Cast MANY /lpf (0 - 2); Urine Mucus FEW (None Seen); Urine Specific Gravity 1.021 (1.001-1.035); Urine WBC 78 /hpf (0 - 3); Urine WBC Clumps PRESENT /hpf (None Seen)
[2019-10-18 05:46] LABS: Alcohol, Urine < 3.0 mg/dL (0-5); Amphetamine Screen, Urine NEGATIVE (NEGATIVE); Barbiturate Scree,Urine NEGATIVE (NEGATIVE); Benzodiazephine Screen, Urine POSITIVE (NEGATIVE); Cannabinoid Screen, Urine NEGATIVE (NEGATIVE); Cocaine Screen, Urine NEGATIVE (NEGATIVE); Opiate Scree,Urine NEGATIVE (NEGATIVE); Phencyclidine Screen, Urine NEGATIVE (NEGATIVE)
[2019-10-18] MEDS: PIPERACILLIN-TAZOB 2.25GM 50 ML IV SCH ×3 (06:12→20:35)
[2019-10-18] MEDS: PROPOFOL 100 ML IV SCH ×3 (06:13→19:30)
[2019-10-18 06:59] LABS: Protein, Urine 32.7 mg/dL (0.0-11.9)
[2019-10-18] MEDS ORDERED: PANTOPRAZOLE 40 MG/10 ML VIAL INJ IV SCH (10:00)
[2019-10-18] MEDS: BUMETANIDE 2.5mg/10ml (0.25 mg/ml) INJ IV SCH (11:32)
[2019-10-18] MEDS: LINEZOLID 600MG/300ML 300 ML IV SCH ×2 (11:36→22:25)
[2019-10-18 12:09] LABS: INR 2.84 (0.9-1.15)
[2019-10-18 12:15] LABS: Partial Thromboplastin Time > 139.0 sec (23.64-32.05)
[2019-10-18] MEDS: DOPamine 1600MCG/ML D5W 250 ML IV SCH (12:58)
[2019-10-18] MEDS: BUMETANIDE INJECTION 12.5 MG in GIVE UN-DILUTED 0 ML IV SCH (13:30)
[2019-10-18 20:06] LABS: Hematocrit 41.7 % (41.0-53.0)
[2019-10-18] MEDS: ACETYLCYSTEINE 200MG/ML IV SOL 10,000 MG in D5W 5% 1,000 ML IV SCH (20:35)
[2019-10-18 20:39] LABS: INR 2.07 (0.9-1.15)
[2019-10-18 20:43] LABS: Partial Thromboplastin Time 133.5 sec (23.64-32.05)
[2019-10-18] MEDS: PANTOPRAZOLE 40 MG/10 ML VIAL INJ IV SCH (22:25)
[2019-10-19] VITALS (97 sets, daily range): BP systolic 114–163; BP diastolic 21–99
[2019-10-19] MEDS: PIPERACILLIN-TAZOB 2.25GM 50 ML IV SCH ×4 (00:06→18:19)
[2019-10-19] MEDS: PROPOFOL 100 ML IV SCH ×5 (00:06→22:49)
[2019-10-19] MEDS: ACCU-CHEK COMFORT CURVE STRIP VI SCH ×7 (00:21→23:54)
[2019-10-19] MEDS: InsuLIN REG 1unit/0.01ml Soln (100units/ml) SC SCH ×7 (00:21→23:54)
[2019-10-19] MEDS: MIDAZOLAM DRIP 50 mg/50mL 50 ML IV SCH ×5 (02:12→21:45)
[2019-10-19] MEDS: NOREPINEPHRINE 8 MG/250ML KIT 250 ML IV SCH (02:45)
[2019-10-19 04:02] LABS: Basophils # (auto) 0 uL; Basophils % (auto) 0.2 % (0.0-2.0); Eosinophils # (auto) 0 uL; Hematocrit 41.4 % (41.0-53.0); Hemoglobin 13.8 g/dL (13.5-17.5); Lymphocytes % (auto) 8.4 % (10.0-50.0); Mean Corpuscular Hemoglobin 29.3 pg (28.0-32.0); Mean Corpuscular Hgb Conc. 33.3 g/dL (32.0-36.0); Mean Corpuscular Volume 87.7 fL (80.0-100.0); Monocytes # (auto) 1.2 uL; Monocytes % (auto) 10.1 % (0.0-12.0); Neutrophils # (auto) 9.3 uL; Neutrophils % (auto) 81.3 % (37.0-80.0); Nucleated Red Blood Cells % 0.2 %; Platelet Count (auto) 200 10^3/uL (140-450); Red Blood Cells 4.71 10^6/uL (4.5-5.90); Red Cell Distribution Width 14.1 % (11.8-14.3); White Blood Cell 11.4 10^3/uL (4.4-10.8)
[2019-10-19 04:13] LABS: Albumin 2.4 g/dL (3.4-5.0); Calcium 7.1 mg/dL (8.5-10.1); Potassium 3.3 mmol/L (3.5-5.1)
[2019-10-19 04:15] LABS: BUN/Creatinine Ratio 19.1
[2019-10-19 04:17] LABS: Bilirubin, Total 0.8 mg/dL (0.2-1.0); Total Protein 6.5 g/dL (6.4-8.2)
[2019-10-19] MEDS: MORPHINE SULF INJ 2 MG/ML SYRINGE 1ML IV PRN (04:49)
[2019-10-19] MEDS: DOBUTamine 1000MCG/ML 250 ML IV SCH ×2 (07:01→15:35)
[2019-10-19] MEDS: BUMETANIDE INJECTION 12.5 MG in GIVE UN-DILUTED 0 ML IV SCH (07:01)
[2019-10-19 08:02] LABS: INR 1.63 (0.9-1.15); Partial Thromboplastin Time 29.9 sec (23.64-32.05)
[2019-10-19] MEDS ORDERED: POTASSIUM CHLORIDE 40 MEQ, LIDOCAINE 1% (LOCAL ANESTH.) 4 ML in SODIUM CHL 0.9% 100 ML IV ONE (10:00)
[2019-10-19] MEDS: PANTOPRAZOLE 40 MG/10 ML VIAL INJ IV SCH ×2 (10:14→21:45)
[2019-10-19] MEDS: LINEZOLID 600MG/300ML 300 ML IV SCH ×2 (10:14→21:45)
[2019-10-19 11:04] LABS: Lactic Acid w/Reflex 3.1 mmol/L (0.4-2.0)
[2019-10-19] MEDS: levoFLOXacin 250MG 50 ML IV SCH (11:30)
[2019-10-19] MEDS ORDERED: POTASSIUM EFFERVESENT TAB 25 MEQ NG ONE (11:45)
[2019-10-19] MEDS: POTASSIUM CHL 20MEQ/100ML 100 ML IV SCH ×2 (11:45→14:53)
[2019-10-19] MEDS: acetaZOLAMIDE SODIUM 500 MG VL IV SCH ×2 (13:00→21:44)
[2019-10-19 19:49] LABS: Calcium 7.8 mg/dL (8.5-10.1); Potassium 3.6 mmol/L (3.5-5.1)
[2019-10-20] VITALS (104 sets, daily range): BP systolic 93–147; BP diastolic 48–93
[2019-10-20] MEDS: PIPERACILLIN-TAZOB 2.25GM 50 ML IV SCH ×5 (00:06→23:45)
[2019-10-20] MEDS: BUMETANIDE INJECTION 12.5 MG in GIVE UN-DILUTED 0 ML IV SCH ×2 (00:06→22:17)
[2019-10-20] MEDS: DOBUTamine 1000MCG/ML 250 ML IV SCH ×4 (02:30→20:55)
[2019-10-20] MEDS: MIDAZOLAM DRIP 50 mg/50mL 50 ML IV SCH ×6 (02:33→18:16)
[2019-10-20] MEDS: PROPOFOL 100 ML IV SCH ×6 (02:33→22:21)
[2019-10-20] MEDS: NOREPINEPHRINE 8 MG/250ML KIT 250 ML IV SCH (02:45)
[2019-10-20] MEDS: ACCU-CHEK COMFORT CURVE STRIP VI SCH ×6 (03:13→23:46)
[2019-10-20] MEDS: InsuLIN REG 1unit/0.01ml Soln (100units/ml) SC SCH ×6 (03:13→23:46)
[2019-10-20 04:25] LABS: Basophils # (auto) 0 uL; Basophils % (auto) 0.2 % (0.0-2.0); Eosinophils # (auto) 0 uL; Hematocrit 46.2 % (41.0-53.0); Hemoglobin 15.1 g/dL (13.5-17.5); Lymphocytes # (auto) 1.4 uL; Lymphocytes % (auto) 10.6 % (10.0-50.0); Mean Corpuscular Hgb Conc. 32.7 g/dL (32.0-36.0); Mean Corpuscular Volume 88.5 fL (80.0-100.0); Monocytes # (auto) 1.2 uL; Monocytes % (auto) 8.9 % (0.0-12.0); Neutrophils # (auto) 10.9 uL; Neutrophils % (auto) 80.3 % (37.0-80.0); Nucleated Red Blood Cells % 0.2 %; Platelet Count (auto) 249 10^3/uL (140-450); Red Blood Cells 5.22 10^6/uL (4.5-5.90); Red Cell Distribution Width 14.4 % (11.8-14.3); White Blood Cell 13.6 10^3/uL (4.4-10.8)
[2019-10-20 04:46] LABS: Calcium 8.1 mg/dL (8.5-10.1); Potassium 3.1 mmol/L (3.5-5.1)
[2019-10-20 04:49] LABS: BUN/Creatinine Ratio 22.4
[2019-10-20] MEDS: POTASSIUM CHL 20MEQ/100ML 100 ML IV SCH ×2 (06:39→08:00)
[2019-10-20] MEDS: DOPamine 1600MCG/ML D5W 250 ML IV SCH ×2 (08:19→12:00)
[2019-10-20] MEDS ORDERED: POTASSIUM CHLORIDE 40 MEQ, LIDOCAINE 1% (LOCAL ANESTH.) 4 ML in SODIUM CHL 0.9% 100 ML IV ONE (09:45)
[2019-10-20] MEDS: levoFLOXacin 250MG 50 ML IV SCH (09:52)
[2019-10-20] MEDS: LINEZOLID 600MG/300ML 300 ML IV SCH ×2 (09:52→22:15)
[2019-10-20] MEDS: PANTOPRAZOLE 40 MG/10 ML VIAL INJ IV SCH ×2 (09:52→22:15)
[2019-10-21] VITALS (97 sets, daily range): BP systolic 103–139; BP diastolic 61–89
[2019-10-21] MEDS: MIDAZOLAM DRIP 50 mg/50mL 50 ML IV SCH ×6 (00:29→22:20)
[2019-10-21] MEDS: PROPOFOL 100 ML IV SCH ×5 (02:20→22:20)
[2019-10-21] MEDS: NOREPINEPHRINE 8 MG/250ML KIT 250 ML IV SCH (02:45)
[2019-10-21] MEDS: InsuLIN REG 1unit/0.01ml Soln (100units/ml) SC SCH ×6 (04:00→23:39)
[2019-10-21 04:11] LABS: Basophils # (auto) 0 uL; Basophils % (auto) 0.1 % (0.0-2.0); Eosinophils # (auto) 0.1 uL; Eosinophils % (auto) 1.1 % (0.0-7.0); Hematocrit 44.6 % (41.0-53.0); Hemoglobin 14.5 g/dL (13.5-17.5); Lymphocytes # (auto) 1.3 uL; Lymphocytes % (auto) 12.1 % (10.0-50.0); Mean Corpuscular Hemoglobin 28.9 pg (28.0-32.0); Mean Corpuscular Hgb Conc. 32.5 g/dL (32.0-36.0); Mean Corpuscular Volume 88.9 fL (80.0-100.0); Monocytes # (auto) 1.1 uL; Monocytes % (auto) 10.6 % (0.0-12.0); Neutrophils # (auto) 8.1 uL; Neutrophils % (auto) 76.1 % (37.0-80.0); Platelet Count (auto) 208 10^3/uL (140-450); Red Blood Cells 5.01 10^6/uL (4.5-5.90); Red Cell Distribution Width 14.5 % (11.8-14.3); White Blood Cell 10.6 10^3/uL (4.4-10.8)
[2019-10-21] MEDS: ACCU-CHEK COMFORT CURVE STRIP VI SCH ×6 (04:13→23:39)
[2019-10-21 04:37] LABS: Potassium 3.5 mmol/L (3.5-5.1)
[2019-10-21 04:43] LABS: BUN/Creatinine Ratio 20.3; Calcium 8.6 mg/dL (8.5-10.1)
[2019-10-21] MEDS: PIPERACILLIN-TAZOB 2.25GM 50 ML IV SCH ×4 (05:51→23:39)
[2019-10-21] MEDS: DOBUTamine 1000MCG/ML 250 ML IV SCH ×2 (06:12→14:54)
[2019-10-21] MEDS: PANTOPRAZOLE 40 MG/10 ML VIAL INJ IV SCH ×2 (09:02→22:18)
[2019-10-21] MEDS: levoFLOXacin 250MG 50 ML IV SCH (09:02)
[2019-10-21] MEDS: LINEZOLID 600MG/300ML 300 ML IV SCH ×2 (10:30→22:19)
[2019-10-21] MEDS: DOPamine 1600MCG/ML D5W 250 ML IV SCH (12:55)
[2019-10-21] MEDS ORDERED: Glucerna 1.2 Cal 1Liter BOTTLE GT SCH (13:15)
[2019-10-22] VITALS (105 sets, daily range): BP systolic 101–167; BP diastolic 66–105
[2019-10-22] MEDS: DOBUTamine 1000MCG/ML 250 ML IV SCH ×2 (01:15→12:33)
[2019-10-22] MEDS: BUMETANIDE INJECTION 12.5 MG in GIVE UN-DILUTED 0 ML IV SCH ×2 (01:16→12:35)
[2019-10-22] MEDS: NOREPINEPHRINE 8 MG/250ML KIT 250 ML IV SCH (02:45)
[2019-10-22] MEDS: PROPOFOL 100 ML IV SCH ×2 (03:30→21:18)
[2019-10-22] MEDS: InsuLIN REG 1unit/0.01ml Soln (100units/ml) SC SCH ×4 (04:00→17:59)
[2019-10-22] MEDS: ACCU-CHEK COMFORT CURVE STRIP VI SCH ×4 (04:00→18:34)
[2019-10-22 04:40] LABS: Basophils # (auto) 0 uL; Basophils % (auto) 0.4 % (0.0-2.0); Eosinophils # (auto) 0.4 uL; Eosinophils % (auto) 4.1 % (0.0-7.0); Hematocrit 42.3 % (41.0-53.0); Hemoglobin 13.7 g/dL (13.5-17.5); Mean Corpuscular Hemoglobin 28.9 pg (28.0-32.0); Mean Corpuscular Hgb Conc. 32.5 g/dL (32.0-36.0); Mean Corpuscular Volume 89.1 fL (80.0-100.0); Monocytes # (auto) 1.1 uL; Monocytes % (auto) 10.5 % (0.0-12.0); Neutrophils # (auto) 8.2 uL; Nucleated Red Blood Cells % 0.1 %; Platelet Count (auto) 167 10^3/uL (140-450); Red Blood Cells 4.75 10^6/uL (4.5-5.90); Red Cell Distribution Width 14.1 % (11.8-14.3); White Blood Cell 10.7 10^3/uL (4.4-10.8)
[2019-10-22 04:54] LABS: Albumin 2.7 g/dL (3.4-5.0); Calcium 8.7 mg/dL (8.5-10.1); Potassium 3.3 mmol/L (3.5-5.1)
[2019-10-22 04:57] LABS: BUN/Creatinine Ratio 19.5
[2019-10-22 04:59] LABS: Bilirubin, Total 0.9 mg/dL (0.2-1.0); Total Protein 7.4 g/dL (6.4-8.2)
[2019-10-22] MEDS ORDERED: POTASSIUM CHL 20MEQ/100ML 100 ML IV ONE ×2 (05:35→12:15)
[2019-10-22] MEDS: PIPERACILLIN-TAZOB 2.25GM 50 ML IV SCH ×3 (05:42→18:00)
[2019-10-22] MEDS: POTASSIUM CHL 20MEQ/100ML 100 ML IV SCH ×2 (06:33→08:05)
[2019-10-22] MEDS: PANTOPRAZOLE 40 MG/10 ML VIAL INJ IV SCH ×2 (09:46→22:10)
[2019-10-22] MEDS: DOPamine 1600MCG/ML D5W 250 ML IV SCH (12:00)
[2019-10-22 16:50] LABS: Basophils # (auto) 0.1 uL; Basophils % (auto) 0.5 % (0.0-2.0); Eosinophils # (auto) 0.5 uL; Eosinophils % (auto) 4.1 % (0.0-7.0); Hematocrit 45.6 % (41.0-53.0); Hemoglobin 14.7 g/dL (13.5-17.5); Lymphocytes # (auto) 0.9 uL; Lymphocytes % (auto) 7.1 % (10.0-50.0); Mean Corpuscular Hemoglobin 28.5 pg (28.0-32.0); Mean Corpuscular Hgb Conc. 32.3 g/dL (32.0-36.0); Mean Corpuscular Volume 88.2 fL (80.0-100.0); Monocytes # (auto) 0.9 uL; Monocytes % (auto) 7.6 % (0.0-12.0); Neutrophils # (auto) 9.8 uL; Neutrophils % (auto) 80.7 % (37.0-80.0); Nucleated Red Blood Cells % 0.1 %; Platelet Count (auto) 170 10^3/uL (140-450); Red Blood Cells 5.16 10^6/uL (4.5-5.90); White Blood Cell 12.2 10^3/uL (4.4-10.8)
[2019-10-22] MEDS: HEPARIN DRIP/D5W 100UNITS/ML 250 ML IV SCH (18:11)
[2019-10-22] MEDS ORDERED: HEPARIN SODIUM (PORCINE) 5000 UNITS/ML 1ML VIAL SC SCH (22:00)
[2019-10-23] VITALS (84 sets, daily range): BP systolic 120–174; BP diastolic 74–110
[2019-10-23] MEDS: DOBUTamine 1000MCG/ML 250 ML IV SCH ×2 (00:15→09:13)
[2019-10-23] MEDS: ACCU-CHEK COMFORT CURVE STRIP VI SCH ×5 (00:17→23:30)
[2019-10-23] MEDS: PIPERACILLIN-TAZOB 2.25GM 50 ML IV SCH ×5 (00:17→23:29)
[2019-10-23] MEDS: MIDAZOLAM DRIP 50 mg/50mL 50 ML IV SCH (02:12)
[2019-10-23 02:17] LABS: INR 1.13 (0.9-1.15)
[2019-10-23 02:21] LABS: Partial Thromboplastin Time 88.2 sec (23.64-32.05)
[2019-10-23] MEDS: NOREPINEPHRINE 8 MG/250ML KIT 250 ML IV SCH (02:45)
[2019-10-23] MEDS: InsuLIN REG 1unit/0.01ml Soln (100units/ml) SC SCH ×5 (06:00→23:30)
[2019-10-23] MEDS: PROPOFOL 100 ML IV SCH ×4 (06:29→11:37)
[2019-10-23 07:02] LABS: INR 1.12 (0.9-1.15)
[2019-10-23 07:06] LABS: Partial Thromboplastin Time 81.7 sec (23.64-32.05)
[2019-10-23] MEDS: HEPARIN DRIP/D5W 100UNITS/ML 250 ML IV SCH (08:49)
[2019-10-23] MEDS: BUMETANIDE INJECTION 12.5 MG in GIVE UN-DILUTED 0 ML IV SCH (09:36)
[2019-10-23] MEDS: PANTOPRAZOLE 40 MG/10 ML VIAL INJ IV SCH ×2 (10:06→21:15)
[2019-10-23 12:51] LABS: Basophils # (auto) 0.1 uL; Basophils % (auto) 0.6 % (0.0-2.0); Eosinophils # (auto) 0.8 uL; Eosinophils % (auto) 6.1 % (0.0-7.0); Hemoglobin 15.4 g/dL (13.5-17.5); Lymphocytes # (auto) 1.1 uL; Lymphocytes % (auto) 9.1 % (10.0-50.0); Mean Corpuscular Hemoglobin 28.8 pg (28.0-32.0); Mean Corpuscular Hgb Conc. 32.7 g/dL (32.0-36.0); Mean Corpuscular Volume 88.1 fL (80.0-100.0); Monocytes # (auto) 1.1 uL; Monocytes % (auto) 8.6 % (0.0-12.0); Neutrophils # (auto) 9.6 uL; Neutrophils % (auto) 75.6 % (37.0-80.0); Nucleated Red Blood Cells % 0.1 %; Platelet Count (auto) 167 10^3/uL (140-450); Red Blood Cells 5.33 10^6/uL (4.5-5.90); Red Cell Distribution Width 14.1 % (11.8-14.3); White Blood Cell 12.7 10^3/uL (4.4-10.8)
[2019-10-23 13:47] LABS: BUN/Creatinine Ratio 20.7; Calcium 9.4 mg/dL (8.5-10.1); Potassium 3.2 mmol/L (3.5-5.1)
[2019-10-23] MEDS ORDERED: POTASSIUM CHLORIDE 40 MEQ, LIDOCAINE 1% (LOCAL ANESTH.) 4 ML in SODIUM CHL 0.9% 100 ML IV ONE (16:00)
[2019-10-23] MEDS ORDERED: ACETAMINOPHEN 650 mg PER 20 mL UD PO PRN (16:45)
[2019-10-23 19:53] LABS: INR 1.16 (0.9-1.15); Partial Thromboplastin Time 69.7 sec (23.64-32.05)
[2019-10-23] MEDS: MORPHINE SULF INJ 2 MG/ML SYRINGE 1ML IV PRN (21:15)
[2019-10-24] VITALS (10 sets, daily range): BP systolic 128–163; BP diastolic 67–98
[2019-10-24] MEDS: MORPHINE SULF INJ 2 MG/ML SYRINGE 1ML IV PRN (00:19)
[2019-10-24] MEDS: MIDAZOLAM DRIP 50 mg/50mL 50 ML IV SCH (02:12)
[2019-10-24] MEDS: NOREPINEPHRINE 8 MG/250ML KIT 250 ML IV SCH (02:45)
[2019-10-24 04:01] LABS: Basophils # (auto) 0.1 uL; Basophils % (auto) 0.6 % (0.0-2.0); Eosinophils # (auto) 0.5 uL; Hematocrit 47.6 % (41.0-53.0); Hemoglobin 15.7 g/dL (13.5-17.5); Lymphocytes # (auto) 1.2 uL; Lymphocytes % (auto) 9.5 % (10.0-50.0); Mean Corpuscular Hemoglobin 29.2 pg (28.0-32.0); Mean Corpuscular Hgb Conc. 32.9 g/dL (32.0-36.0); Mean Corpuscular Volume 88.9 fL (80.0-100.0); Monocytes # (auto) 1.1 uL; Monocytes % (auto) 9.3 % (0.0-12.0); Neutrophils # (auto) 9.4 uL; Neutrophils % (auto) 76.6 % (37.0-80.0); Nucleated Red Blood Cells % 0.1 %; Platelet Count (auto) 161 10^3/uL (140-450); Red Blood Cells 5.36 10^6/uL (4.5-5.90); White Blood Cell 12.2 10^3/uL (4.4-10.8)
[2019-10-24] MEDS: HEPARIN DRIP/D5W 100UNITS/ML 250 ML IV SCH (04:02)
[2019-10-24 04:30] LABS: BUN/Creatinine Ratio 22.1; Calcium 9.4 mg/dL (8.5-10.1); Potassium 3.4 mmol/L (3.5-5.1)
[2019-10-24 04:50] LABS: INR 1.12 (0.9-1.15); Partial Thromboplastin Time 26.9 sec (23.64-32.05)
[2019-10-24] MEDS: InsuLIN REG 1unit/0.01ml Soln (100units/ml) SC SCH ×3 (06:00→23:32)
[2019-10-24] MEDS: ACCU-CHEK COMFORT CURVE STRIP VI SCH ×4 (06:00→23:32)
[2019-10-24] MEDS: PIPERACILLIN-TAZOB 2.25GM 50 ML IV SCH ×3 (06:00→17:17)
[2019-10-24] MEDS ORDERED: diphenhdrAMINE HCL 50 MG/1 ML VL ONE (07:23)
[2019-10-24] MEDS ORDERED: VANCOMYCIN 1GM/250ML 250 ML IV ONE (07:24)
[2019-10-24] MEDS ORDERED: MIDAZOLAM HCL 1MG/1ML-2 ML VIAL ONE (07:24)
[2019-10-24] MEDS ORDERED: fentaNYL CITRATE 100 MCG/2 ML VL ONE (07:24)
[2019-10-24] MEDS ORDERED: BACITRACIN INJ 50000 UNIT VIAL ONE (07:24)
[2019-10-24] MEDS ORDERED: LIDOCAINE 2%HCL (LOCAL ANESTH.) INJ 20ML MDV ONE (07:25)
[2019-10-24] MEDS ORDERED: SODIUM CHLORIDE 0.9% 300 ML IV SCH ×2 (07:30)
[2019-10-24] MEDS ORDERED: VANCOMYCIN HCL 1000 MG VL ONE (07:37)
[2019-10-24] MEDS ORDERED: IODIXANOL 320MG/ML 100ML BTL IV ONE (07:38)
[2019-10-24] MEDS ORDERED: LABETALOL HCL 5 MG/ML ML 20ML VIAL IV ONE (08:50)
[2019-10-24] MEDS: DOXYCYCLINE 100 MG TAB/CAP PO SCH ×2 (10:00→22:21)
[2019-10-24] MEDS: FLORASTOR (S. BOULARDII) 250 MG CAP PO SCH ×2 (10:00→22:20)
[2019-10-24] MEDS ORDERED: LORazepam 0.5 MG TAB PO ONE (14:15)
[2019-10-24] MEDS ORDERED: LORazepam 0.5 MG TAB PO PRN (14:15)
[2019-10-24] MEDS: VANCOMYCIN 1GM/250ML 250 ML IV SCH (18:31)
[2019-10-24] MEDS ORDERED: POTASSIUM EFFERVESENT TAB 25 MEQ PO ONE (19:00)
[2019-10-24] MEDS ORDERED: DOXYCYCLINE 100MG/250ML 250 ML IV SCH (19:00)
[2019-10-24] MEDS ORDERED: VANCOMYCIN 1GM/250ML 250 ML IV SCH (21:00)
[2019-10-24] MEDS: CARVEDILOL 12.5 MG TAB PO SCH (22:00)
[2019-10-24] MEDS ORDERED: LORazepam 2MG/ML-1ML VIAL IV PRN (22:15)
[2019-10-25] MEDS: ACCU-CHEK COMFORT CURVE STRIP VI SCH ×3 (05:44→18:00)
[2019-10-25] MEDS: InsuLIN REG 1unit/0.01ml Soln (100units/ml) SC SCH ×3 (05:45→18:00)
[2019-10-25] MEDS: VANCOMYCIN 1GM/250ML 250 ML IV SCH (06:31)
[2019-10-25 09:00] VITALS: BP 138/84
[2019-10-25] MEDS ORDERED: HALOPERIDOL LACTATE 5 MG/ML INJ VIAL IM PRN (09:30)
[2019-10-25 09:33] LABS: Basophils # (auto) 0 uL; Basophils % (auto) 0.4 % (0.0-2.0); Eosinophils # (auto) 0.4 uL; Eosinophils % (auto) 2.7 % (0.0-7.0); Hematocrit 39.3 % (41.0-53.0); Hemoglobin 12.5 g/dL (13.5-17.5); Lymphocytes # (auto) 1.5 uL; Lymphocytes % (auto) 11.5 % (10.0-50.0); Mean Corpuscular Hemoglobin 28.3 pg (28.0-32.0); Mean Corpuscular Volume 88.7 fL (80.0-100.0); Monocytes # (auto) 1.2 uL; Neutrophils # (auto) 10.1 uL; Neutrophils % (auto) 76.4 % (37.0-80.0); Red Blood Cells 4.43 10^6/uL (4.5-5.90); Red Cell Distribution Width 13.9 % (11.8-14.3); White Blood Cell 13.2 10^3/uL (4.4-10.8)
[2019-10-25 09:49] LABS: Albumin 2.9 g/dL (3.4-5.0); Potassium 3.3 mmol/L (3.5-5.1)
[2019-10-25 09:55] LABS: Bilirubin, Total 1.3 mg/dL (0.2-1.0); Total Protein 7.8 g/dL (6.4-8.2)
[2019-10-25 09:58] LABS: BUN/Creatinine Ratio 27.5
[2019-10-25] MEDS: DOXYCYCLINE 100 MG TAB/CAP PO SCH ×2 (10:10→22:00)
[2019-10-25] MEDS: FLORASTOR (S. BOULARDII) 250 MG CAP PO SCH ×2 (10:10→22:00)
[2019-10-25] MEDS: CARVEDILOL 12.5 MG TAB PO SCH ×2 (10:11→22:00)
[2019-10-25 10:12] LABS: Platelet Count (auto) 121 10^3/uL (140-450)
[2019-10-25] MEDS ORDERED: POTASSIUM CHLORIDE 60 MEQ, LIDOCAINE 1% (LOCAL ANESTH.) 6 ML in SODIUM CHL 0.9% 500 ML IV ONE (10:30)
[2019-10-25 13:00] VITALS: BP 100/71
[2019-10-25 16:32] VITALS: BP 128/78
[2019-10-25] MEDS: HEPARIN SODIUM (PORCINE) 5000 UNITS/ML 1ML VIAL SC SCH (22:00)
[2019-10-25] MEDS ORDERED: APIXABAN 5 MG TAB PO SCH (22:00)
[2019-10-25] MEDS ORDERED: HEPARIN SODIUM (PORCINE) 5000 UNITS/ML 1ML VIAL ONE (22:03)
[2019-10-25 22:21] VITALS: BP 129/79
[2019-10-26] MEDS: MORPHINE SULF INJ 2 MG/ML SYRINGE 1ML IV PRN ×3 (04:05→20:47)
[2019-10-26 04:12] VITALS: BP 115/61
[2019-10-26 05:12] LABS: Basophils # (auto) 0.1 uL; Basophils % (auto) 0.6 % (0.0-2.0); Eosinophils # (auto) 0.6 uL; Hematocrit 40.8 % (41.0-53.0); Hemoglobin 13.2 g/dL (13.5-17.5); Lymphocytes # (auto) 2.3 uL; Lymphocytes % (auto) 16.4 % (10.0-50.0); Mean Corpuscular Hemoglobin 28.8 pg (28.0-32.0); Mean Corpuscular Hgb Conc. 32.4 g/dL (32.0-36.0); Monocytes # (auto) 1.8 uL; Monocytes % (auto) 12.7 % (0.0-12.0); Neutrophils # (auto) 9.4 uL; Neutrophils % (auto) 66.3 % (37.0-80.0); Platelet Count (auto) 115 10^3/uL (140-450); Red Blood Cells 4.58 10^6/uL (4.5-5.90); Red Cell Distribution Width 13.9 % (11.8-14.3); White Blood Cell 14.2 10^3/uL (4.4-10.8)
[2019-10-26 05:38] LABS: Potassium 3.9 mmol/L (3.5-5.1)
[2019-10-26] MEDS: InsuLIN REG 1unit/0.01ml Soln (100units/ml) SC SCH ×4 (05:39→18:31)
[2019-10-26] MEDS: ACCU-CHEK COMFORT CURVE STRIP VI SCH ×4 (05:39→18:31)
[2019-10-26] MEDS: HEPARIN SODIUM (PORCINE) 5000 UNITS/ML 1ML VIAL SC SCH ×3 (05:40→22:32)
[2019-10-26 05:44] LABS: Albumin 2.6 g/dL (3.4-5.0); BUN/Creatinine Ratio 30.3; Calcium 8.6 mg/dL (8.5-10.1); Total Protein 6.9 g/dL (6.4-8.2)
[2019-10-26 09:00] VITALS: BP 130/89
[2019-10-26] MEDS: DOXYCYCLINE 100 MG TAB/CAP PO SCH ×2 (11:19→22:32)
[2019-10-26] MEDS: FLORASTOR (S. BOULARDII) 250 MG CAP PO SCH ×2 (11:19→22:32)
[2019-10-26] MEDS: CARVEDILOL 12.5 MG TAB PO SCH ×2 (11:20→22:00)
[2019-10-26 13:00] VITALS: BP 111/78
[2019-10-26 17:07] VITALS: BP 120/81
[2019-10-26 20:00] VITALS: BP 91/62
[2019-10-26 23:31] VITALS: BP 91/62
[2019-10-27] MEDS: ACCU-CHEK COMFORT CURVE STRIP VI SCH ×4 (00:11→17:57)
[2019-10-27] MEDS: MORPHINE SULF INJ 2 MG/ML SYRINGE 1ML IV PRN ×2 (02:38→08:31)
[2019-10-27 05:33] LABS: Basophils # (auto) 0.1 uL; Basophils % (auto) 0.7 % (0.0-2.0); Eosinophils # (auto) 0.4 uL; Eosinophils % (auto) 3.5 % (0.0-7.0); Hematocrit 37.1 % (41.0-53.0); Hemoglobin 12.1 g/dL (13.5-17.5); Lymphocytes # (auto) 2.3 uL; Lymphocytes % (auto) 18.5 % (10.0-50.0); Mean Corpuscular Hemoglobin 28.7 pg (28.0-32.0); Mean Corpuscular Hgb Conc. 32.7 g/dL (32.0-36.0); Mean Corpuscular Volume 87.8 fL (80.0-100.0); Monocytes # (auto) 1.9 uL; Monocytes % (auto) 15.2 % (0.0-12.0); Neutrophils # (auto) 7.6 uL; Neutrophils % (auto) 62.1 % (37.0-80.0); Platelet Count (auto) 123 10^3/uL (140-450); Red Blood Cells 4.22 10^6/uL (4.5-5.90); Red Cell Distribution Width 14.1 % (11.8-14.3); White Blood Cell 12.3 10^3/uL (4.4-10.8)
[2019-10-27 05:40] VITALS: BP 142/89
[2019-10-27 05:50] LABS: Potassium 3.9 mmol/L (3.5-5.1)
[2019-10-27] MEDS: HEPARIN SODIUM (PORCINE) 5000 UNITS/ML 1ML VIAL SC SCH ×3 (05:52→22:00)
[2019-10-27] MEDS: InsuLIN REG 1unit/0.01ml Soln (100units/ml) SC SCH ×4 (05:52→17:57)
[2019-10-27 05:57] LABS: BUN/Creatinine Ratio 28.7; Calcium 8.5 mg/dL (8.5-10.1)
[2019-10-27 09:00] VITALS: BP 121/67
[2019-10-27] MEDS: DOXYCYCLINE 100 MG TAB/CAP PO SCH ×2 (09:59→22:00)
[2019-10-27] MEDS: CARVEDILOL 12.5 MG TAB PO SCH ×2 (09:59→22:00)
[2019-10-27] MEDS: FLORASTOR (S. BOULARDII) 250 MG CAP PO SCH ×2 (09:59→22:00)
[2019-10-27] MEDS ORDERED: metFORMIN HYDROCHLORIDE 500 MG TAB PO ONE (12:45)
[2019-10-27 12:46] LABS: Cholesterol 125 mg/dL (< 200)
[2019-10-27 12:49] LABS: HDL Cholesterol 23 mg/dL (40-59); LDL Cholesterol 80 mg/dL (< 100); Triglycerides 178 mg/dL (< 150)
[2019-10-27 13:01] VITALS: BP 139/91
[2019-10-27 17:00] VITALS: BP 141/88
[2019-10-27] MEDS: metFORMIN HYDROCHLORIDE 500 MG TAB PO SCH (18:03)
[2019-10-27 20:00] VITALS: BP 137/77
[2019-10-27 22:00] VITALS: BP 137/77
[2019-10-28 05:00] VITALS: BP 135/84
[2019-10-28] MEDS: ACCU-CHEK COMFORT CURVE STRIP VI SCH ×4 (05:58→22:16)
[2019-10-28] MEDS: InsuLIN REG 1unit/0.01ml Soln (100units/ml) SC SCH ×4 (05:58→22:00)
[2019-10-28] MEDS: HEPARIN SODIUM (PORCINE) 5000 UNITS/ML 1ML VIAL SC SCH (05:59)
[2019-10-28 06:19] LABS: Potassium 4.2 mmol/L (3.5-5.1)
[2019-10-28 06:28] LABS: BUN/Creatinine Ratio 27.3; Calcium 8.7 mg/dL (8.5-10.1)
[2019-10-28] MEDS: metFORMIN HYDROCHLORIDE 500 MG TAB PO SCH ×2 (07:58→17:22)
[2019-10-28 08:58] VITALS: BP 131/87
[2019-10-28] MEDS: FLORASTOR (S. BOULARDII) 250 MG CAP PO SCH ×2 (09:46→22:14)
[2019-10-28] MEDS: DOXYCYCLINE 100 MG TAB/CAP PO SCH ×2 (09:47→22:16)
[2019-10-28] MEDS: CARVEDILOL 12.5 MG TAB PO SCH ×2 (09:47→22:14)
[2019-10-28] MEDS ORDERED: APIXABAN 5 MG TAB PO ONE (12:00)
[2019-10-28] MEDS ORDERED: DEXTROSE (50%) 50ML SYRG IV PRN (12:00)
[2019-10-28 12:04] LABS: Basophils # (auto) 0.1 uL; Basophils % (auto) 1.3 % (0.0-2.0); Eosinophils # (auto) 0.4 uL; Eosinophils % (auto) 3.5 % (0.0-7.0); Hematocrit 35.9 % (41.0-53.0); Hemoglobin 11.8 g/dL (13.5-17.5); Lymphocytes # (auto) 2.5 uL; Lymphocytes % (auto) 23.4 % (10.0-50.0); Mean Corpuscular Hemoglobin 29.1 pg (28.0-32.0); Mean Corpuscular Hgb Conc. 32.8 g/dL (32.0-36.0); Mean Corpuscular Volume 88.6 fL (80.0-100.0); Monocytes # (auto) 1.3 uL; Monocytes % (auto) 12.7 % (0.0-12.0); Neutrophils # (auto) 6.2 uL; Neutrophils % (auto) 59.1 % (37.0-80.0); Nucleated Red Blood Cells % 0.1 %; Platelet Count (auto) 159 10^3/uL (140-450); Red Blood Cells 4.05 10^6/uL (4.5-5.90); Red Cell Distribution Width 14.1 % (11.8-14.3); White Blood Cell 10.5 10^3/uL (4.4-10.8)
[2019-10-28 13:00] VITALS: BP 160/98
[2019-10-28 17:00] VITALS: BP 153/93
[2019-10-28] MEDS ORDERED: LABETALOL HCL 5 MG/ML ML 20ML VIAL IV PRN (18:45)
[2019-10-28] MEDS ORDERED: LABETALOL HCL 5 MG/ML ML 20ML VIAL IV ONE (18:45)
[2019-10-28 18:57] VITALS: BP 149/70
[2019-10-28] MEDS: ONDANSETRON HCL 4 MG/2 ML VIAL IV PRN (20:23)
[2019-10-28] MEDS: MORPHINE SULF INJ 2 MG/ML SYRINGE 1ML IV PRN (20:24)
[2019-10-28 21:55] VITALS: BP 161/93
[2019-10-28] MEDS: FAMOTIDINE 20 MG TAB PO SCH (22:15)
[2019-10-28] MEDS: APIXABAN 5 MG TAB PO SCH (22:15)
[2019-10-29] MEDS: ONDANSETRON HCL 4 MG/2 ML VIAL IV PRN (00:42)
[2019-10-29] MEDS: MORPHINE SULF INJ 2 MG/ML SYRINGE 1ML IV PRN (00:43)
[2019-10-29 05:56] VITALS: BP 132/71
[2019-10-29] MEDS: ACCU-CHEK COMFORT CURVE STRIP VI SCH (06:26)
[2019-10-29] MEDS: InsuLIN REG 1unit/0.01ml Soln (100units/ml) SC SCH (06:26)
[2019-10-29 06:30] LABS: Basophils # (auto) 0.1 uL; Eosinophils # (auto) 0.3 uL; Eosinophils % (auto) 2.6 % (0.0-7.0); Hematocrit 35.4 % (41.0-53.0); Hemoglobin 11.4 g/dL (13.5-17.5); Lymphocytes % (auto) 17.5 % (10.0-50.0); Mean Corpuscular Hemoglobin 29.3 pg (28.0-32.0); Mean Corpuscular Hgb Conc. 32.1 g/dL (32.0-36.0); Mean Corpuscular Volume 91.1 fL (80.0-100.0); Monocytes # (auto) 1.2 uL; Monocytes % (auto) 10.2 % (0.0-12.0); Neutrophils # (auto) 7.8 uL; Neutrophils % (auto) 68.7 % (37.0-80.0); Nucleated Red Blood Cells % 0.1 %; Platelet Count (auto) 176 10^3/uL (140-450); Red Blood Cells 3.88 10^6/uL (4.5-5.90); Red Cell Distribution Width 14.1 % (11.8-14.3); White Blood Cell 11.4 10^3/uL (4.4-10.8)
[2019-10-29 06:45] LABS: BUN/Creatinine Ratio 21.9; Calcium 8.2 mg/dL (8.5-10.1); Potassium 4.2 mmol/L (3.5-5.1)
[2019-10-29] MEDS: metFORMIN HYDROCHLORIDE 500 MG TAB PO SCH (08:10)
[2019-10-29 09:01] VITALS: BP 132/78
[2019-10-29] MEDS: APIXABAN 5 MG TAB PO SCH (10:00)
[2019-10-29] MEDS: FAMOTIDINE 20 MG TAB PO SCH (10:00)
[2019-10-29] MEDS: DOXYCYCLINE 100 MG TAB/CAP PO SCH (10:00)
[2019-10-29] MEDS: FLORASTOR (S. BOULARDII) 250 MG CAP PO SCH (10:00)
[2019-10-29] MEDS: CARVEDILOL 12.5 MG TAB PO SCH (10:00)
== END 2019-10-29 10:00 | disposition home or self-care (01) | DRG 792 ==
LOC: EDBD 00:36 → ER 00:36 → TELE 00:37 → ICU WEST 11:45 → TELE-CENTR 10-24 11:00
PROVIDERS: ADMIT Hospitalist; ATTEND Internal Medicine
PROC: 5A1955Z Respiratory Ventilation, Greater than 96 Consecutive Hours (ICD-10-PCS; principal; 2019-10-17)
PROC: 0BH17EZ Insertion of Endotracheal Airway into Trachea, Via Natural or Artificial Opening (ICD-10-PCS; 2019-10-17)
PROC: 02HV33Z Insertion of Infusion Device into Superior Vena Cava, Percutaneous Approach (ICD-10-PCS; 2019-10-17)
PROC: 5A12012 Performance of Cardiac Output, Single, Manual (ICD-10-PCS; 2019-10-17)
PROC: 02HV33Z Insertion of Infusion Device into Superior Vena Cava, Percutaneous Approach (ICD-10-PCS; 2019-10-20)
PROC: B548ZZA Ultrasonography of Superior Vena Cava, Guidance (ICD-10-PCS; 2019-10-20)
PROC: 02H63KZ Insertion of Defibrillator Lead into Right Atrium, Percutaneous Approach (ICD-10-PCS; 2019-10-24)
PROC: 0JH608Z Insertion of Defibrillator Generator into Chest Subcutaneous Tissue and Fascia, Open Approach (ICD-10-PCS; 2019-10-24)
PROC: 02HK3KZ Insertion of Defibrillator Lead into Right Ventricle, Percutaneous Approach (ICD-10-PCS; 2019-10-24)
PROC: B5171ZZ Fluoroscopy of Left Subclavian Vein using Low Osmolar Contrast (ICD-10-PCS; 2019-10-24)
DX: T39.1X1A Poisoning by 4-Aminophenol derivatives, accidental (unintentional), initial encounter (principal); J96.00 Acute respiratory failure, unspecified whether with hypoxia or hypercapnia; I26.99 Other pulmonary embolism without acute cor pulmonale; N17.0 Acute kidney failure with tubular necrosis; J69.0 Pneumonitis due to inhalation of food and vomit; J44.0 Chronic obstructive pulmonary disease with (acute) lower respiratory infection; R57.0 Cardiogenic shock; G93.41 Metabolic encephalopathy; I48.20 Chronic atrial fibrillation, unspecified; E11.21 Type 2 diabetes mellitus with diabetic nephropathy; I48.92 Unspecified atrial flutter; I44.2 Atrioventricular block, complete; T17.220A Food in pharynx causing asphyxiation, initial encounter; R65.10 Systemic inflammatory response syndrome (SIRS) of non-infectious origin without acute organ dysfunction; N18.3 Chronic kidney disease, stage 3 (moderate); E87.4 Mixed disorder of acid-base balance; E11.22 Type 2 diabetes mellitus with diabetic chronic kidney disease; K21.9 Gastro-esophageal reflux disease without esophagitis; E66.9 Obesity, unspecified; E78.5 Hyperlipidemia, unspecified; I50.43 Acute on chronic combined systolic (congestive) and diastolic (congestive) heart failure; E87.0 Hyperosmolality and hypernatremia; E87.6 Hypokalemia; J44.1 Chronic obstructive pulmonary disease with (acute) exacerbation; I13.0 Hypertensive heart and chronic kidney disease with heart failure and stage 1 through stage 4 chronic kidney disease, or unspecified chronic kidney disease; J10.1 Influenza due to other identified influenza virus with other respiratory manifestations; I42.0 Dilated cardiomyopathy; I25.10 Atherosclerotic heart disease of native coronary artery without angina pectoris; F41.9 Anxiety disorder, unspecified; I25.2 Old myocardial infarction; Z95.810 Presence of automatic (implantable) cardiac defibrillator; Z91.19 Patient's noncompliance with other medical treatment and regimen; Z79.899 Other long term (current) drug therapy; Z80.1 Family history of malignant neoplasm of trachea, bronchus and lung; Z99.11 Dependence on respirator [ventilator] status; Z79.82 Long term (current) use of aspirin; Z79.84 Long term (current) use of oral hypoglycemic drugs; Z82.49 Family history of ischemic heart disease and other diseases of the circulatory system; Z83.3 Family history of diabetes mellitus; Z86.711 Personal history of pulmonary embolism; Z86.73 Personal history of transient ischemic attack (TIA), and cerebral infarction without residual deficits; Z87.891 Personal history of nicotine dependence; Z95.1 Presence of aortocoronary bypass graft; Z87.01 Personal history of pneumonia (recurrent); Y92.89 Other specified places as the place of occurrence of the external cause
CPT/HCPCS: 31500; 33249; 36415; 36600; 51702; 70450; 71045; 74018; 80048; 80053; 80061; 80307; 80320; 80329; 81001; 82570; 82805; 82962; 83036; 83605; 83735; 83880; 84132; 84156; 84300; 84443; 84484; 85014; 85018; 85025; 85610; 85730; 86850; 86900; 86901; 87040; 87070; 87081; 87086; 87205; 92610; 92950; 93005; 93970; 94002; 94003; 96374; 97110; 97116; 97163; 97530; 99152; 99153; 99291; A4618; C1751; C9113; G0378; J0330; J1815; J2001; J2250; J2405; J2543; J2704; J3480; J7060; Q9967

== ENCOUNTER 2020-01-15 00:18 | Inpatient (IN) | payer MEDICAID ==
[~2020-01-15] VITALS: Ht 167.6 cm; Wt 93.2 kg
[2020-01-15] MEDS ORDERED: ALBUTEROL SULF 2.5 MG/0.5ML(0.5%) NEB SOLN ONE (00:41)
[2020-01-15] MEDS ORDERED: IPRATROPIUM BROM 0.5 MG/2.5ML INH SOL ONE (00:41)
[2020-01-15] MEDS ORDERED: methylPREDNISolone SOD SUCC 125 MG/2 ML VL IV ONE (00:45)
[2020-01-15 00:58] LABS: Basophils # (auto) 0 10 ^3/uL (0-0.2); Basophils % (auto) 0.6 % (0.0-2.0); Eosinophils # (auto) 0.2 10 ^3/uL (0-0.8); Eosinophils % (auto) 2.2 % (0.0-7.0); Hematocrit 38.6 % (41.0-53.0); Hemoglobin 12.1 g/dL (13.5-17.5); Lymphocytes # (auto) 0.8 10 ^3/uL (0.4-5.4); Lymphocytes % (auto) 11.2 % (10.0-50.0); Mean Corpuscular Hemoglobin 27.8 pg (28.0-32.0); Mean Corpuscular Hgb Conc. 31.2 g/dL (32.0-36.0); Monocytes # (auto) 1.1 10 ^3/uL (0-1.3); Nucleated Red Blood Cells % 0.1 %; Platelet Count (auto) 144 10^3/uL (140-450); Red Blood Cells 4.34 10^6/uL (4.5-5.90); White Blood Cell 7.1 10^3/uL (4.4-10.8)
[2020-01-15] MEDS ORDERED: IPRATROPIUM BROM 0.5 MG/2.5ML INH SOL NEB ONE (01:00)
[2020-01-15] MEDS ORDERED: ALBUTEROL SULF 2.5 MG/0.5ML(0.5%) NEB SOLN NEB ONE (01:00)
[2020-01-15 01:15] LABS: Albumin 2.8 g/dL (3.4-5.0); BUN/Creatinine Ratio 24.7; Calcium 8.2 mg/dL (8.5-10.1); Magnesium 2.3 mg/dL (1.6-2.6)
[2020-01-15 01:20] LABS: Total Protein 8.1 g/dL (6.4-8.2)
[2020-01-15] MEDS ORDERED: FUROSEMIDE 20 MG/2 ML VIAL IV ONE ×2 (01:30→02:00)
[2020-01-15] MEDS ORDERED: cloNIDine HCL 0.1 MG TAB PO ONE (01:30)
[2020-01-15 02:44] LABS: Urine Bacteria NONE SEEN /hpf (None Seen); Urine Blood TRACE /uL (Negative); Urine Hyaline Cast MOD /lpf (0 - 2); Urine Mucus FEW (None Seen); Urine Specific Gravity 1.012 (1.001-1.035); Urine WBC <1 /hpf (0 - 3)
[2020-01-15] MEDS ORDERED: ACETAMINOPHEN 650 mg PER 20 mL UD PO PRN (04:15)
[2020-01-15] MEDS ORDERED: cloNIDine HCL 0.1 MG TAB PO PRN (04:15)
[2020-01-15] MEDS ORDERED: ALBUTEROL SULF 2.5 MG/0.5ML(0.5%) NEB SOLN NEB PRN (04:15)
[2020-01-15] MEDS ORDERED: IPRATROPIUM BROM 0.5 MG/2.5ML INH SOL NEB PRN (04:15)
[2020-01-15] MEDS ORDERED: ONDANSETRON HCL 4 MG/2 ML VIAL IV PRN (05:30)
[2020-01-15] MEDS ORDERED: DOCUSATE SOD 100 MG CAP PO PRN (05:30)
[2020-01-15] MEDS ORDERED: ACETAMINOPHEN 325 MG TAB PO PRN (05:30)
[2020-01-15] MEDS ORDERED: MORPHINE SULF INJ 2 MG/ML SYRINGE 1ML IV PRN ×2 (05:30)
[2020-01-15] MEDS ORDERED: NITROGLYCERIN 0.4 MG SL TAB SL PRN (05:30)
[2020-01-15] MEDS ORDERED: HYDROcodone-ACET 5/325MG TAB PO PRN (05:30)
[2020-01-15 06:49] LABS: Basophils # (auto) 0 10 ^3/uL (0-0.2); Basophils % (auto) 0.2 % (0.0-2.0); Eosinophils # (auto) 0 10 ^3/uL (0-0.8); Eosinophils % (auto) 0.1 % (0.0-7.0); Hematocrit 36.9 % (41.0-53.0); Hemoglobin 11.7 g/dL (13.5-17.5); Lymphocytes # (auto) 0.1 10 ^3/uL (0.4-5.4); Lymphocytes % (auto) 2.1 % (10.0-50.0); Mean Corpuscular Hemoglobin 28.2 pg (28.0-32.0); Mean Corpuscular Hgb Conc. 31.6 g/dL (32.0-36.0); Mean Corpuscular Volume 89.2 fL (80.0-100.0); Monocytes # (auto) 0.1 10 ^3/uL (0-1.3); Monocytes % (auto) 2.3 % (0.0-12.0); Neutrophils # (auto) 5.8 10 ^3/uL (1.6-8.6); Neutrophils % (auto) 95.3 % (37.0-80.0); Platelet Count (auto) 119 10^3/uL (140-450); Red Blood Cells 4.14 10^6/uL (4.5-5.90); White Blood Cell 6.1 10^3/uL (4.4-10.8)
[2020-01-15 07:06] LABS: BUN/Creatinine Ratio 23.1; Calcium 8.2 mg/dL (8.5-10.1); Potassium 4.1 mmol/L (3.5-5.1)
[2020-01-15] MEDS ORDERED: LABETALOL HCL 5 MG/ML 4ML SYRINGE IV ONE (08:43)
[2020-01-15 09:22] VITALS: BP 170/97
[2020-01-15] MEDS: AMIODARONE HCL 200 MG TAB PO SCH ×2 (09:40→21:37)
[2020-01-15] MEDS: ASPirin 81 mg TAB PO SCH (09:40)
[2020-01-15] MEDS: SILDENAFIL CITRATE 20 MG TAB PO SCH (09:44)
[2020-01-15] MEDS: methylPREDNISolone SOD SUCC 125 MG/2 ML VL IV SCH (09:44)
[2020-01-15] MEDS: CARVEDILOL 12.5 MG TAB PO SCH ×2 (09:44→21:35)
[2020-01-15] MEDS: APIXABAN 5 MG TAB PO SCH ×2 (09:44→21:34)
[2020-01-15] MEDS: OMEPRAZOLE 20MG/10ML ORAL SUSP PO SCH (09:45)
[2020-01-15] MEDS: FUROSEMIDE 40 MG/4 ML VIAL IV SCH ×2 (09:50→18:00)
[2020-01-15] MEDS ORDERED: FUROSEMIDE 40 MG TAB PO SCH (10:00)
--- NOTE | 2020-01-15 10:07 | NUR ---
Telemetry admit from ER KAUR HIGUERA admitted to Telemetry unit after SBAR received. Patient oriented to MICHAEL RIDDLE RN primary RN, unit, room, bed, and unit policies regarding patient care and visiting hours. Patient now on continuous telemetry monitoring, tele box # 76 and telemetry reading on arrival to unit is SINUS RHYTHM. Patient placed on bedside oxygen, weighed by bedscale and encouraged to call if they need something. All questions and concerns addressed, patient verbalized understanding.
[2020-01-15 10:45] VITALS: BP 150/95
[2020-01-15 13:00] VITALS: BP 143/98
--- NOTE | 2020-01-15 14:30 | NUR ---
IV removal IV TO LEFT WRIST DC'd with clean sterile technique, catheter fully intact. Pressure dressing applied to site. Patient tolerated well.
--- NOTE | 2020-01-15 14:32 | NUR ---
IV insertion IV access obtained, via clean sterile technique by inserting 20 gauge catheter at RIGHT FOREARM after 1 attempt(s). IV secured properly. No trauma to site. Patient tolerated well.
[2020-01-15 17:00] VITALS: BP 131/88
--- NOTE | 2020-01-15 18:50 | NUR ---
ASSESSED PT @ THIS TIME FOR PRN MED NEB TX. PT IS AWAKE AND ALERT AND SITTING UP IN A BEDSIDE CHAIR. HE STATES HIS BREATHING IS DOING FINE. NO DISTRESS NOTED. CURRENTLY ON R/A 98%, HR 88 AND RR 20. BS ARE DIMINISHED T/O. HE IS AWARE TO CALL IF HE FEELS SOB.
--- NOTE | 2020-01-15 20:00 | NUR ---
Opening Shift Note Received report from SON Alvarez and assumed care of patient, awake and alert. No S/S of distress/SOB or pain. Instructed patient to call for assist if needed and verbalized understanding . Will continue to monitor.
[2020-01-15 22:00] VITALS: BP 129/49
[2020-01-15] MEDS ORDERED: FLUoxetine HCL 20 MG CAP PO SCH (22:00)
[2020-01-16 05:00] VITALS: BP 128/85
[2020-01-16] MEDS: FUROSEMIDE 40 MG/4 ML VIAL IV SCH (05:30)
[2020-01-16 05:52] LABS: Basophils # (auto) 0 10 ^3/uL (0-0.2); Basophils % (auto) 0.1 % (0.0-2.0); Eosinophils # (auto) 0 10 ^3/uL (0-0.8); Hematocrit 33.8 % (41.0-53.0); Hemoglobin 10.7 g/dL (13.5-17.5); Lymphocytes # (auto) 0.2 10 ^3/uL (0.4-5.4); Lymphocytes % (auto) 3.3 % (10.0-50.0); Mean Corpuscular Hemoglobin 27.7 pg (28.0-32.0); Mean Corpuscular Hgb Conc. 31.6 g/dL (32.0-36.0); Mean Corpuscular Volume 87.6 fL (80.0-100.0); Monocytes # (auto) 0.3 10 ^3/uL (0-1.3); Monocytes % (auto) 4.7 % (0.0-12.0); Neutrophils # (auto) 6.7 10 ^3/uL (1.6-8.6); Neutrophils % (auto) 91.9 % (37.0-80.0); Nucleated Red Blood Cells % 0.1 %; Platelet Count (auto) 119 10^3/uL (140-450); Red Blood Cells 3.86 10^6/uL (4.5-5.90); Red Cell Distribution Width 16.8 % (11.8-14.3); White Blood Cell 7.3 10^3/uL (4.4-10.8)
[2020-01-16 06:07] LABS: INR 1.3 (0.9-1.15); Partial Thromboplastin Time 29.9 sec (23.64-32.05)
[2020-01-16 06:13] LABS: Potassium 3.9 mmol/L (3.5-5.1)
[2020-01-16 06:18] LABS: BUN/Creatinine Ratio 30.8; Calcium 8.5 mg/dL (8.5-10.1); Magnesium 2.3 mg/dL (1.6-2.6)
[2020-01-16 08:09] VITALS: BP 130/89
[2020-01-16] MEDS: ASPirin 81 mg TAB PO SCH (09:09)
[2020-01-16] MEDS: methylPREDNISolone SOD SUCC 125 MG/2 ML VL IV SCH (09:09)
[2020-01-16] MEDS: APIXABAN 5 MG TAB PO SCH (09:10)
[2020-01-16] MEDS: OMEPRAZOLE 20MG/10ML ORAL SUSP PO SCH (09:10)
[2020-01-16] MEDS: AMIODARONE HCL 200 MG TAB PO SCH (09:10)
[2020-01-16] MEDS: SILDENAFIL CITRATE 20 MG TAB PO SCH (09:14)
[2020-01-16] MEDS: CARVEDILOL 12.5 MG TAB PO SCH (09:52)
[2020-01-16 12:43] VITALS: BP 127/86
[2020-01-16] MEDS ORDERED: IPRIH IN (13:37)
[2020-01-16] MEDS ORDERED: ASPI81CH43 PO (13:37)
[2020-01-16] MEDS ORDERED: APIX5TAB PO (13:37)
[2020-01-16] MEDS ORDERED: CAR125T PO (13:37)
[2020-01-16] MEDS ORDERED: PRED20TA2 PO (13:37)
[2020-01-16] MEDS ORDERED: SILD20TA PO (13:37)
[2020-01-16] MEDS ORDERED: ALBUAER3 IN (13:37)
[2020-01-16] MEDS ORDERED: AMIO200T4 PO (13:37)
[2020-01-16] MEDS ORDERED: NORT10CA PO (13:37)
[2020-01-16] MEDS ORDERED: FURO1TAB31 PO (13:37)
[2020-01-16 15:44] VITALS: BP 127/86
--- NOTE | 2020-01-16 16:23 | NUR ---
Discharge instructions given as ordered. Encourage to follow up with PMD as instructed. All questions and concerns addressed. Patient verbalized understanding. Medication reconciliation form completed and copy given to patient. Home medications held in Pharmacy returned to patient. IV removed with catheter intact, pressure dressing applied. Telemetry unit returned to ICU. Patient taken to vehicle via wheelchair with all personal belongings, accompanied by staff and family member. No distress noted at time of departure.
--- NOTE | 2020-01-16 16:27 | NUR ---
Assessment Patient is a 54-year-old male who is alert and oriented. Prior to admission patient lived home alone and function independently. Patient informed me he can care for his own ADLs. Patient stated he has a cane, walker, wheelchair and home O2 for home use. Per patient he will return home to his prior living arrangements post discharge and his friend will transport him home. Advised patient there is a social service consult for home health safety evaluation and [facility] transitional care management. Informed patient clinical information will be faxed to [facility]. Informed patient he has a right to participate in all discharge planning. Patient verbalized understanding and agreed to discharge plan home. Per Brittney with [facility] ) patient has been accepted and service to start within 24-48hrs upon d/c day. Obtain authorization from [facility] for home health [id number]. Per Merissa with [facility] Kbree will refer patient to [facility] transitional care management. Will informed nurse. Addendum: 01/16/20 at 1632 by LAZ ALEMAN Amended: Links added.
== END 2020-01-16 16:32 | disposition home health service (06) | DRG 194 ==
LOC: EDBD 00:18 → ER 00:21 → TELE 00:22 → TELE-WESTW 10:26
PROVIDERS: ADMIT Hospitalist; ATTEND Internal Medicine
DX: I11.0 Hypertensive heart disease with heart failure (principal); J18.9 Pneumonia, unspecified organism; N17.9 Acute kidney failure, unspecified; I27.20 Pulmonary hypertension, unspecified; I48.91 Unspecified atrial fibrillation; I50.43 Acute on chronic combined systolic (congestive) and diastolic (congestive) heart failure; I25.10 Atherosclerotic heart disease of native coronary artery without angina pectoris; E11.9 Type 2 diabetes mellitus without complications; E78.5 Hyperlipidemia, unspecified; F32.9 Major depressive disorder, single episode, unspecified; I25.5 Ischemic cardiomyopathy; J44.1 Chronic obstructive pulmonary disease with (acute) exacerbation; E66.9 Obesity, unspecified; K21.9 Gastro-esophageal reflux disease without esophagitis; Z86.73 Personal history of transient ischemic attack (TIA), and cerebral infarction without residual deficits; I25.2 Old myocardial infarction; I45.10 Unspecified right bundle-branch block; F41.9 Anxiety disorder, unspecified; J44.0 Chronic obstructive pulmonary disease with (acute) lower respiratory infection; Z86.711 Personal history of pulmonary embolism; Z79.01 Long term (current) use of anticoagulants; Z79.82 Long term (current) use of aspirin; Z95.810 Presence of automatic (implantable) cardiac defibrillator; Z95.1 Presence of aortocoronary bypass graft; Z80.1 Family history of malignant neoplasm of trachea, bronchus and lung; Z82.49 Family history of ischemic heart disease and other diseases of the circulatory system; Z83.3 Family history of diabetes mellitus; Z79.899 Other long term (current) drug therapy; Z68.33 Body mass index [BMI] 33.0-33.9, adult
CPT/HCPCS: 36415; 36600; 71045; 76775; 80048; 80053; 81001; 82805; 83036; 83690; 83735; 83880; 84484; 85025; 85610; 85730; 93005; 94640; 94644; 96374; 96375; 96376; G0378; J3490